=== PATIENT | female | born 1955 | race Caucasian/White ===

== ENCOUNTER 2018-04-11 06:43 | Inpatient (IN) | payer BC ==
[~2018-04-11 06:43] MED LIST: Lactated Ringers 1,000 ML IV SCH; Lidocaine 1%/Sod Bicarbonate in NS 8.4% 1 ML Syringe IDERM PRN; Sodium Chloride 0.9% 10 ML Syringe FLUSH PRN
[2018-04-11] MEDS ORDERED: Cyclobenzaprine 10 MG Tab PO PRN (06:45)
[2018-04-11] MEDS ORDERED: Sennosides 8.6 MG Tab PO PRN (06:46)
[2018-04-11] MEDS ORDERED: Bisacodyl 5 MG Tab PO PRN (06:46)
[2018-04-11] MEDS ORDERED: Morphine 2 MG/ML Syringe IVPUSH PRN (06:46)
[2018-04-11] MEDS ORDERED: Magnesium Hydroxide 400 MG/5 ML Susp 30 ML Cup PO PRN (06:46)
[2018-04-11] MEDS ORDERED: Naloxone 0.4 MG/ML SDV IVPUSH PRN (06:46)
[2018-04-11] MEDS ORDERED: ceFAZolin 1 GM Vial ONE ×2 (06:55→07:09)
[2018-04-11] MEDS ORDERED: Ketorolac 30 MG/ML SDV ONE ×2 (06:55→08:16)
[2018-04-11] MEDS ORDERED: Propofol 200 MG/20 ML SDV ONE ×2 (06:55→09:03)
[2018-04-11] MEDS ORDERED: fentaNYL 100 MCG/2 ML SDV ONE (06:56)
[2018-04-11] MEDS ORDERED: Midazolam 1 MG/ML 2 ML SDV ONE ×2 (06:56→07:53)
[2018-04-11] MEDS ORDERED: oxyCODONE ER 10 MG TAB.ER PO SCH (07:00)
[2018-04-11] MEDS ORDERED: Acetaminophen 325 MG Tab PO SCH (07:00)
[2018-04-11] MEDS ORDERED: ceFAZolin 2 GM in Premix Bag 1 BAG IV SCH (07:00)
[2018-04-11] MEDS ORDERED: Vancomycin 1 GM SDV ONE (07:09)
[2018-04-11] MEDS ORDERED: Iodine/Sodium Iodide 2% Tincture 30 ML Bottle ONE (07:09)
[2018-04-11] MEDS ORDERED: Bupivacaine 0.25% 30 ML SDV ONE ×2 (07:10→07:15)
[2018-04-11] MEDS ORDERED: Triamcinolone Acetonide 40 MG/ML 1 ML MDV ONE ×3 (07:15→10:24)
--- NOTE | 2018-04-11 07:34 | PCM.PREANE ---
Preanesthetic Assessment - Anesthesia/Transfusion/Family Hx Anesthesia History: Prior Anesthesia Without Reaction Family History of Anesthesia Reaction: No Transfusion History: No Prior Transfusion(s) - Review of Systems General: Other (increased lipids) Pulmonary: Other (CXR negative) Cardiovascular: Other (EKG-SR, 2-3 plus pitting edema in ankles and feet. pt states this happens when cortisone shots wear off) Gastrointestinal: No Symptoms Other: Reports: Depression, Anxiety - Physical Assessment NPO Status Date: 04/10/18 NPO Status Time: 22:00 Pulse: 71 O2 Sat by Pulse Oximetry: 97 Respiratory Rate: 16 Blood Pressure: 142/57 Height: 1.73 m Weight: 94 kg ASA Class: 2 Mental Status: Alert & Oriented x3 Airway Class: Mallampati = 2 Dentition: Reports: Normal Dentition Thyro-Mental Finger Breadths: 3 Mouth Opening Finger Breadths: 3 ROM/Head Extension: Full Lungs: Clear to Auscultation, Normal Respiratory Effort Cardiovascular: Regular Rate, Regular Rhythm - Lab Values: Laboratory Last Values MRSA (PCR) Negative 03/30/18 15:03 - Allergies Allergies/Adverse Reactions: Allergies Allergy/AdvReac Type Severity Reaction Status Date / Time adhesive Allergy Blisters Verified 04/08/18 14:09 latex Allergy Blisters Verified 04/08/18 14:09 Sulfa (Sulfonamide Allergy Rash Verified 04/08/18 14:09 Antibiotics) - Blood Blood Available: No Product(s) Available: None - Anesthesia Plan Pre-Op Medication Ordered: None - Acknowledgements Anesthesia Type Planned: Spinal Pt an Appropriate Candidate for the Planned Anesthesia: Yes Alternatives and Risks of Anesthesia Discussed w Pt/Guardian: Yes Pt/Guardian Understands and Agrees with Anesthesia Plan: Yes PreAnesthesia Questionnaire HEENT History: Reports: Allergic Rhinitis, Impaired Vision Cardiovascular History: Reports: High Cholesterol, Hypertension Respiratory History: Reports: None Gastrointestinal History: Reports: None Genitourinary History: Reports: Urinary Incontinence, Other (See Below) Other Genitourinary History: rectocele, incontinence SERVICES ADVISOR History: Reports: , Other (See Below) Other OB/BYN History: bladder lift Musculoskeletal History: Reports: None Neurological History: Reports: None Psychiatric History: Reports: Anxiety, Depression, Other (See Below) Other Psychiatric History: insomnia Endocrine/Metabolic History: Reports: None Hematologic History: Reports: Other (See Below) Other Hematologic History: leukocytosis Immunologic History: Reports: None Oncologic (Cancer) History: Reports: None Dermatologic History: Reports: None - Past Surgical History Head Surgeries/Procedures: Reports: None HEENT Surgical History: Reports: None Cardiovascular Surgical History: Reports: None Respiratory Surgical History: Reports: None GI Surgical History: Reports: Colonoscopy Female Surgical History: Reports: Hysterectomy Male Surgical History: Reports: None Endocrine Surgical History: Reports: None Neurological Surgical History: Reports: None Musculoskeletal Surgical History: Reports: None Oncologic Surgical History: Reports: None Dermatological Surgical History: Reports: None - SUBSTANCE USE Smoking Status *Q: Never Smoker Second Hand Smoke Exposure: No Recreational Drug Use History: No - HOME MEDS Home Medications: Home Meds Cholecalciferol (Vitamin D3) [Vitamin D3] 1,000 unit PO DAILY 04/08/18 [History] Fluticasone Propionate [Flonase] 1 spray NASBOTH DAILY PRN 04/08/18 [History] Montelukast [Singulair] 10 mg PO DAILY 04/08/18 [History] Multivitamin [Daily Jonathan] 1 tab PO DAILY 04/08/18 [History] Venlafaxine HCl [Venlafaxine ER] 37.5 mg PO DAILY 04/08/18 [History] Venlafaxine HCl [Venlafaxine ER] 75 mg PO DAILY 04/08/18 [History] Zolpidem Tartrate 10 mg PO BEDTIME PRN 04/08/18 [History] - CURRENT (IN HOUSE) MEDS Current Meds: Current Medications Acetaminophen (Tylenol) 975 mg PO ONETIME ART Aspirin (Ecotrin) 325 mg PO BID ART Bisacodyl (Dulcolax) 5 mg PO DAILY PRN PRN Reason: Constipation Cyclobenzaprine HCl (Flexeril) 10 mg PO TID PRN PRN Reason: Spasms Docusate Sodium (Colace) 100 mg PO BID ART Famotidine (Pepcid) 20 mg PO Q12H [facility] Lactated Ringer's (Ringers, Lactated) 1,000 mls @ 125 mls/hr IV ASDIRECTED ART Cefazolin Sodium/Dextrose 2 gm (/ Premix) 50 mls @ 100 mls/hr IV Q8H ART Stop: 04/11/18 23:29 Ketorolac Tromethamine (Toradol) 15 mg IVPUSH Q6H PRN PRN Reason: Pain Lidocaine/Sodium Bicarbonate (Buffered Lidocaine 1% In Ns 8.4%) 0.25 ml IDERM ONETIME PRN PRN Reason: Prior to IV Start Magnesium Hydroxide (Milk Of Magnesia) 30 ml PO BID PRN PRN Reason: Constipation Morphine Sulfate (Morphine) 2 mg IVPUSH Q2H PRN PRN Reason: Breakthrough Pain Naloxone HCl (Narcan) 0.1 mg IVPUSH Q5M PRN PRN Reason: Oversedation Oxycodone HCl (Oxycontin) 10 mg PO ONETIME ART Oxycodone/Acetaminophen (Percocet 325-5 Mg) 1 - 2 tab PO Q4H PRN PRN Reason: Pain Pregabalin (Lyrica) 50 mg PO ONETIME ONE Stop: 04/11/18 09:01 Senna (Senna) 8.6 mg PO BID PRN PRN Reason: Constipation Sodium Chloride (Saline Flush) 10 ml FLUSH ASDIRECTED PRN PRN Reason: Keep Vein Open Discontinued Medications Bupivacaine HCl (Marcaine 0.25%) Confirm Administered Dose 30 ml .ROUTE .STK- MED ONE Stop: 04/11/18 07:11 Bupivacaine HCl (Marcaine 0.25%) Confirm Administered Dose 30 ml .ROUTE .STK- MED ONE Stop: 04/11/18 07:16 Cefazolin Sodium (Ancef) Confirm Administered Dose 2 gm .ROUTE .STK-MED ONE Stop: 04/11/18 06:56 Cefazolin Sodium (Ancef) Confirm Administered Dose 2 gm .ROUTE .STK-MED ONE Stop: 04/11/18 07:10 Morphine Sulfate 8 mg/Epinephrine HCl 0.3 mg/Cefuroxime Sodium 750 mg/Ketorolac Tromethamine 30 mg/Sodium Chloride 27.9 ml 0 mg .XX ONETIME ONE Stop: 04/11/18 06:46 Fentanyl (Sublimaze) Confirm Administered Dose 100 mcg .ROUTE .STK-MED ONE Stop: 04/11/18 06:57 Iodine (Iodine 2% Mild Tincture) Confirm Administered Dose 30 ml .ROUTE .STK- MED ONE Stop: 04/11/18 07:10 Ketorolac Tromethamine (Toradol) Confirm Administered Dose 30 mg .ROUTE .STK- MED ONE Stop: 04/11/18 06:56 Midazolam HCl (Versed 1 Mg/Ml) Confirm Administered Dose 2 mg .ROUTE .STK-MED ONE Stop: 04/11/18 06:57 Propofol (Diprivan 20 Ml) Confirm Administered Dose 600 mg .ROUTE .STK-MED ONE Stop: 04/11/18 06:56 Tranexamic Acid (Cyklokapron) Confirm Administered Dose 1,000 mg .ROUTE .STK- MED ONE Stop: 04/11/18 07:10 Triamcinolone Acetonide (Kenalog-40) Confirm Administered Dose 40 mg .ROUTE .STK -MED ONE Stop: 04/11/18 07:16 Vancomycin HCl (Vancomycin) Confirm Administered Dose 1 gm .ROUTE .STK-MED ONE Stop: 04/11/18 07:10
[2018-04-11] MEDS ORDERED: Ropivacaine 0.5% 5 MG/ML 30 ML SDV ONE (07:40)
[2018-04-11] MEDS ORDERED: EPINEPHrine 1 MG/ML SDV ONE (07:40)
[2018-04-11] MEDS ORDERED: Pregabalin 25 MG Cap PO ONE (08:00)
[2018-04-11] MEDS ORDERED: Bupivacaine 0.75% 30 ML SDV ONE (08:16)
[2018-04-11] MEDS ORDERED: Phenylephrine/Normal Saline 100 MCG/ML 10 ML Syringe ONE ×2 (08:16→08:58)
[2018-04-11] MEDS ORDERED: Lactated Ringers 1,000 ML ONE ×2 (08:59→09:39)
[2018-04-11] MEDS: Morphine 8 MG, EPINEPHrine 0.3 MG, Cefuroxime 750 MG, Ketorolac 30 MG, Sodium Chloride ... ONE ×10 (09:13→20:42)
--- NOTE | 2018-04-11 09:56 | PCM.POSTAN ---
POST ANESTHESIA ASSESSMENT - MENTAL STATUS Mental Status: Alert, Oriented - VITAL SIGNS Pulse Rate: 70 SaO2: 96 Resp Rate: 16 Blood Pressure: 112/54 Temperature: 36.6 C - RESPIRATORY Respiratory Status: Respiratory Rate WNL, Airway Patent, O2 Saturation Stable, Supplemental Oxygen - CARDIOVASCULAR CV Status: Pulse Rate WNL, Blood Pressure Stable - GASTROINTESTINAL GI Status: No Symptoms - PAIN Pain Score: 0 - POST OP HYDRATION Hydration Status: Adequate & Stable
[2018-04-11] MEDS ORDERED: fentaNYL 100 MCG/2 ML SDV IVPUSH PRN (09:57)
--- NOTE | 2018-04-11 10:09 | PCM.SN ---
- Free Text/Narrative Note: Left selective femoral nerve block at the adductor canal for post-procedure pain control Time Out: 954 Start: 1003 End: 1000 Chart reviewed. Consent signed. Questions answered. Appropriate monitors applied. Time out performed. 2mg of versed and 100mcg of fentanyl given for sedation. Left mid-shaft femur evaluated with ultrasound. Scanning medially femur, I was able to identify the femoral artery in the adductor canal. The saphenous nerve was lateral to the artery. The skin was prepped lateral to the ultrasound probe with chlorahexadine. Skin localized with 3mL of 1% lidocaine. The 21ga 4 insulated block needle was inserted under direct ultrasound guidance into the adductor canal. 25mL of 0.5% ropivacaine with 1:200,000 epinephrine was injected cirmcumferentially about the nerve with intermittent negative aspiration every 5mL. Patient tolerated the procedure well. See pictures on progress note and vital signs on nurses notes. Block completed postoperatively. Miguel Angel Cantu, FAMILY SERVICE COUNSELOR
--- NOTE | 2018-04-11 11:26 | CR ---
Left knee: AP and lateral views of the left knee were obtained. Comparison: No previous left knee exam. Knee prosthesis is seen. Components are aligned. Underlying bony structures are intact. Soft tissue air is noted from the surgical procedure. Impression: 1. Satisfactory postop radiographic appearance of recently placed left knee prosthesis. Diagnostic code #2
--- NOTE | 2018-04-11 12:04 | PCM.OPNOTE ---
- General Post-Op/Procedure Note Date of Surgery/Procedure: 04/11/18 Operative Procedure(s): bilateral knee osteoarthrosis Pre Op Diagnosis: left total knee arthroplasty with right knee corticosteroid injection Post-Op Diagnosis: Same Anesthesia Technique: Local, MAC, Spinal Primary Surgeon: Robin Lai Anesthesia Provider: Madeleine Baldwin Patent Law Specialist: Saundra Dougherty Patent Law Specialist: Maura Beck EBL in mLs: 200 Complications: None Condition: Good Free Text/Narrative:: Intake & Output 04/10/18 04/11/18 04/11/18 22:59 06:59 14:59 Intake Total 600 Output Total 150 Balance 450 size 4/ 29x9
--- NOTE | 2018-04-11 12:37 | OR ---
DATE OF OPERATION: 04/11/2018 SURGEON: Robin Lai MD OPERATION PERFORMED: Left total knee arthroplasty with right knee corticosteroid injection. PREOPERATIVE DIAGNOSIS: Bilateral knee osteoarthrosis. POSTOPERATIVE DIAGNOSIS: Bilateral knee osteoarthrosis. ANESTHESIA: Local MAC with spinal. ANESTHESIA PROVIDER: Madeleine Baldwin. ASSISTANTS: 1. Saundra Dougherty PA-C. 2. Maura Beck LPN. ESTIMATED BLOOD LOSS: 200 mL. COMPLICATIONS: None. CONDITION: Stable. IMPLANTS: 1. [place] size 4 press-fit CR femur. 2. [place] size 4 press-fit [place] tibial baseplate. 3. Theodora size 4 9-mm CS polyethylene insert. 4. [place] size 29 x 9 mm press-fit patella. DESCRIPTION OF PROCEDURE: The patient was identified in the preop holding area. Proper site was marked and identified by the surgeon. The patient was taken back to the operating theater. After adequate anesthesia, the patient's left lower extremity had a nonsterile tourniquet applied and it was then sterilely prepped and draped in the usual sterile fashion. OR timeout was performed. The patient received 2 grams IV Ancef. At this time, left lower extremity was exsanguinated. Tourniquet was insufflated to 300 mmHg. Standard medial parapatellar incision was made. Medial parapatellar arthrotomy was created. Deep fibers of the MCL were raised and anterior fat pad was resected. At this time, attention was turned to the patella. Patella measured a 22 and it was resected to a 13 for a 29 x 9 mm patella. Drill holes were then drilled and found to be in adequate position. The drill was then drilled in the distal femur and the intramedullary distal femoral cutting guide was then placed. 8 mm was resected off the distal femur and was found to be an adequate resection. Sizing guide was placed. It was found to be a [place] size 4 press-fit CR femur that was shown on the implant record at the beginning of this dictation. The drill holes were drilled for the epicondylar axis using [place] line and epicondyles as reference. At this time, the 4-in-1 cutting block was placed. An anterior posterior and anterior and posterior chamfer cuts were then completed. The correct size box cut was then placed and the box cut was completed and found to be an adequate resection. Attention was turned to the tibia. The posterior medial lateral retractors were placed. The extramedullary tibial guide was placed. It was placed in the old footprint of the ACL. It was aligned with the center of the ankle and 0 degrees of slope, 9 mm was then resected off the unaffected lateral side. There was found to be an acceptable reduction. At this time, posterior osteophytes were removed along with medial and lateral meniscus. A trial implant was placed with a correct sized tibia that was mentioned at the beginning of the dictation. A Theodora size 4 9-mm CS polyethylene insert was then placed. The patient's knee was brought through range of motion. The patella was tracking centrally and was stable to varus and valgus stress. Alignment was found to be roughly at 0 degrees. The tibia was stamped and drilled in proper rotation. The universal tibial base plate was press-fit in place. Next, the Theodora size 4 press-fit CR femur press-fit into place and the Theodora size 4 9-mm CS polyethylene insert was placed. The patient's knee was brought into full extension. The patella was then press-fit in place at this time. Tourniquet was deflated. One liter dilute Betadine solution was irrigated through the knee along with 3 L of pulse lavage irrigation with Ancef. Periarticular injection was then completed. The patient's knee was brought through a range of motion. Knee was found to be stable to varus valgus stress, the patella was tracking centrally with full range of motion. At this time, a #2 barbed suture was used for closure of the medial parapatellar arthrotomy. Topical tranexamic acid was placed. 2-0 Vicryl was used subcutaneously, a running 3-0 Monocryl was used subcuticularly. After that procedure, the patient underwent a corticosteroid injection to the right knee. Under sterile technique, 2 mL of 40 mg Kenalog and 4 mL of 0.25% Marcaine were injected to the right knee. The patient tolerated both the procedures well and was sent to the PACU in a stable condition. JAZMYN /[id number] CHEN
[2018-04-11] MEDS: Docusate Sodium 100 MG Cap PO SCH ×2 (13:11→20:43)
[2018-04-11] MEDS: Famotidine 20 MG Tab PO SCH ×2 (13:11→18:02)
[2018-04-11] MEDS: Acetaminophen/oxyCODONE 325-5 MG Tab PO PRN ×2 (13:37→18:01)
[2018-04-11] MEDS: ceFAZolin 2 GM in Premix Bag 1 BAG IV SCH (14:46)
[2018-04-11] MEDS ORDERED: Temazepam 15 MG Cap PO PRN (17:34)
[2018-04-11] MEDS ORDERED: Promethazine 25 MG Tab PO PRN (17:45)
--- NOTE | 2018-04-11 18:25 | PCM.CONS ---
H&P History of Present Illness - General Date of Service: 04/11/18 Admit Problem/Dx: Admission Diagnosis/Problem Admission Diagnosis/Problem Osteoarthritis of knee Source of Information: Patient, Old Records, Provider History Limitations: Reports: No Limitations - History of Present Illness Initial Comments - Free Text/Narative: Evelyn is a 62 yo female patient of Dr. Lai who is post-operative day 0 of L TKA. Hospital medicine was consulted for post-operative medical care. At this time she is stable. Pain is controlled. She denies any chest pain, shortness of breath, palpitations, nausea, or vomiting. She carries a history of: HTN, HLD, depression, urinary incontinence, leukocytosis, insomnia, GERD, OA, constipation , osteopenia. She has never smoked. She is a full code. Her primary care provider is Aminta Varner. Left Knee Pain Score (Numeric/FACES): 0 - Related Data Allergies/Adverse Reactions: Allergies Allergy/AdvReac Type Severity Reaction Status Date / Time adhesive Allergy Blisters Verified 04/11/18 08:08 latex Allergy Blisters Verified 04/11/18 08:08 Sulfa (Sulfonamide Allergy Rash Verified 04/11/18 08:08 Antibiotics) Home Medications: Home Meds Cholecalciferol (Vitamin D3) [Vitamin D3] 5,000 unit PO DAILY 04/08/18 [History] Montelukast [Singulair] 10 mg PO DAILY 04/08/18 [History] Multivitamin [Daily Jonathan] 1 tab PO DAILY 04/08/18 [History] Venlafaxine HCl [Venlafaxine ER] 37.5 mg PO DAILY 04/08/18 [History] Venlafaxine HCl [Venlafaxine ER] 75 mg PO DAILY 04/08/18 [History] Zolpidem Tartrate 10 mg PO BEDTIME PRN 04/08/18 [History] Acetaminophen/oxyCODONE [Percocet 325-5 MG] 1 - 2 tab PO Q6H PRN #60 tablet 09/18 [Rx] Aspirin [Ecotrin] 325 mg PO BID #84 tab.ec 04/11/18 [Rx] Bisacodyl [Dulcolax] 5 mg PO DAILY PRN tablet 04/11/18 [Rx] Docusate Sodium [Colace] 100 mg PO BID cap 04/11/18 [Rx] Famotidine [Pepcid] 20 mg PO Q12H tablet 04/11/18 [Rx] Magnesium Hydroxide [Milk of Magnesia] 30 ml PO BID PRN cup 04/11/18 [Rx] Sennosides [Senna] 8.6 mg PO BID PRN tablet 04/11/18 [Rx] atorvaSTATin [Lipitor] 20 mg PO BEDTIME 04/11/18 [History] Past Medical History HEENT History: Reports: Allergic Rhinitis, Impaired Vision, Other (See Below) Other HEENT History: wears glasses Cardiovascular History: Reports: High Cholesterol, Hypertension Respiratory History: Reports: None Gastrointestinal History: Reports: None Genitourinary History: Reports: Urinary Incontinence, Other (See Below) Other Genitourinary History: rectocele, incontinence 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: , Other (See Below) Other OB/BYN History: bladder lift Musculoskeletal History: Reports: None Neurological History: Reports: None Psychiatric History: Reports: Anxiety, Depression, Other (See Below) Other Psychiatric History: insomnia Endocrine/Metabolic History: Reports: None Hematologic History: Reports: Other (See Below) Other Hematologic History: leukocytosis Immunologic History: Reports: None Oncologic (Cancer) History: Reports: None Dermatologic History: Reports: None - Infectious Disease History Infectious Disease History: Reports: Chicken Pox, Measles - Past Surgical History Head Surgeries/Procedures: Reports: None HEENT Surgical History: Reports: Tonsillectomy Cardiovascular Surgical History: Reports: None Respiratory Surgical History: Reports: None GI Surgical History: Reports: Colonoscopy, EGD Female Surgical History: Reports: Hysterectomy Endocrine Surgical History: Reports: None Neurological Surgical History: Reports: None Musculoskeletal Surgical History: Reports: None, Knee Replacement Other Musculoskeletal Surgeries/Procedures:: knee replacement 04/11/18 cortisol shot injection. states has had cortisol injections in the past. Oncologic Surgical History: Reports: None Dermatological Surgical History: Reports: None Social & Family History - Family History Family Medical History: Noncontributory - Tobacco Use Smoking Status *Q: Never Smoker Second Hand Smoke Exposure: No - Caffeine Use Caffeine Use: Reports: Soda, Tea - Recreational Drug Use Recreational Drug Use: No H&P Review of Systems - Review of Systems: Review Of Systems: See Below General: Reports: No Symptoms. Denies: Fever, Chills HEENT: Reports: No Symptoms Pulmonary: Reports: No Symptoms. Denies: Shortness of Breath, Pleuritic Chest Pain, Cough Cardiovascular: Reports: No Symptoms. Denies: Chest Pain, Dyspnea on Exertion, Orthopnea, Edema Gastrointestinal: Reports: No Symptoms. Denies: Abdominal Pain, Diarrhea, Nausea, Vomiting Genitourinary: Reports: No Symptoms. Denies: Dysuria, Frequency, Burning, Pain , Urgency, Incontinence Musculoskeletal: Reports: No Symptoms. Denies: Leg Pain, Joint Pain Skin: Reports: No Symptoms Psychiatric: Reports: No Symptoms Neurological: Reports: No Symptoms Hematologic/Lymphatic: Reports: No Symptoms Immunologic: Reports: No Symptoms Exam - Exam Exam: See Below - Vital Signs Vital Signs: Last Vital Signs Temp 97.3 F 04/11/18 10:58 Pulse 64 04/11/18 11:02 Resp 17 04/11/18 10:58 BP 115/48 L 04/11/18 11:02 Pulse Ox 98 04/11/18 11:02 Weight: 207 lb 3.752 oz - Exam Quality Assessment: Urinary Catheter, DVT Prophylaxis. No: Supplemental Oxygen General: Alert, Oriented, Cooperative, Mild Distress HEENT: PERRLA, Hearing Intact, Mucosa Moist & Uriah, Nares Patent, Normal Nasal Septum, Posterior Pharynx Clear, Conjunctiva Clear, EOMI, EACs Clear, TMs Clear Neck: Supple, Trachea Midline, 2 Lungs: Clear to Auscultation, Normal Respiratory Effort Cardiovascular: Regular Rate, Regular Rhythm GI/Abdominal Exam: Normal Bowel Sounds, Soft, Non-Tender, No Organomegaly, No Distention, No Abnormal Bruit, No Mass, Pelvis Stable (Female) Exam: Deferred Rectal (Female) Exam: Deferred Back Exam: Normal Inspection, Full Range of Motion, NT Extremities: Normal Inspection, Non-Tender, No Pedal Edema, Normal Capillary Refill, Limited Range of Motion (s/p L TKA) Peripheral Pulses: 2+: Posterior Tibial (L), Posterior Tibial (R), Dorsalis Pedis (L), Dorsalis Pedis (R) Skin: Warm, Dry, Intact, Other (bandage dry and intact, no drainage) Neurological: Cranial Nerves Intact (grossly) Neuro Extensive - Mental Status: Alert, Oriented x3, Normal Mood/Affect, Normal Cognition Psychiatric: Alert, Normal Affect, Normal Mood Consult PN Assessment/Plan POD#: 0 Procedures: Procedures ASSAY OF FREE THYROXINE (10/17/14) ASSAY THYROID STIM HORMONE (10/17/14) COMP SCREEN MAMMOGRAM ADD-ON (11/04/15) COMPLETE CBC W/AUTO DIFF WBC (10/17/14) COMPREHEN METABOLIC PANEL (10/31/14) DXA BONE DENSITY AXIAL (01/16/16) LIPID PANEL (10/17/14) SCR MAMMO BI INCL CAD (03/24/18) (1) Status post total left knee replacement SNOMED Code(s): 9806630063829 Code(s): Z96.652 - PRESENCE OF LEFT ARTIFICIAL KNEE JOINT Priority: High Current Visit: Yes (2) HTN (hypertension) SNOMED Code(s): 09945060 Code(s): I10 - ESSENTIAL (PRIMARY) HYPERTENSION Priority: Medium Current Visit: No Qualifiers: Hypertension type: unspecified Qualified Code(s): I10 - Essential (primary ) hypertension (3) HLD (hyperlipidemia) SNOMED Code(s): 98406585 Code(s): E78.5 - HYPERLIPIDEMIA, UNSPECIFIED Priority: Low Current Visit : No Qualifiers: Hyperlipidemia type: unspecified Qualified Code(s): E78.5 - Hyperlipidemia , unspecified (4) Other specified depressive episodes SNOMED Code(s): 00540898 Code(s): F32.89 - OTHER SPECIFIED DEPRESSIVE EPISODES Priority: Low Current Visit: No (5) Urinary incontinence SNOMED Code(s): 572914849 Code(s): R32 - UNSPECIFIED URINARY INCONTINENCE Priority: Medium Current Visit: Yes Qualifiers: Urinary Incontinence type: unspecified incontinence Qualified Code(s): R32 - Unspecified urinary incontinence (6) Leukocytosis SNOMED Code(s): 866411879, 631793138 Code(s): D72.829 - ELEVATED WHITE BLOOD CELL COUNT, UNSPECIFIED Priority: Medium Current Visit: No Qualifiers: Leukocytosis type: unspecified Qualified Code(s): D72.829 - Elevated white blood cell count, unspecified (7) Insomnia SNOMED Code(s): 998818322 Code(s): G47.00 - INSOMNIA, UNSPECIFIED Priority: Medium Current Visit: Yes Qualifiers: Insomnia type: unspecified Qualified Code(s): G47.00 - Insomnia, unspecified (8) GERD (gastroesophageal reflux disease) SNOMED Code(s): 694929629 Code(s): K21.9 - GASTRO-ESOPHAGEAL REFLUX DISEASE WITHOUT ESOPHAGITIS Priority: Medium Current Visit: Yes Qualifiers: Esophagitis presence: esophagitis presence not specified Qualified Code(s) : K21.9 - Gastro-esophageal reflux disease without esophagitis (9) Osteoarthritis SNOMED Code(s): 143091419 Code(s): M19.90 - UNSPECIFIED OSTEOARTHRITIS, UNSPECIFIED SITE Priority: High Current Visit: Yes Qualifiers: Osteoarthritis location: knee Osteoarthritis type: unspecified Laterality : unspecified laterality Qualified Code(s): M17.10 - Unilateral primary osteoarthritis, unspecified knee (10) Constipation SNOMED Code(s): 02703537 Code(s): K59.00 - CONSTIPATION, UNSPECIFIED Priority: Medium Current Visit: No Qualifiers: Constipation type: unspecified constipation type Qualified Code(s): K59.00 - Constipation, unspecified (11) Osteopenia SNOMED Code(s): 229106932 Code(s): M85.80 - OTH DISRD OF BONE DENSITY AND STRUCTURE, UNSPECIFIED SITE Priority: Medium Current Visit: Yes Qualifiers: Osteopenia location: unspecified Qualified Code(s): M85.80 - Other specified disorders of bone density and structure, unspecified site Problem List Initiated/Reviewed/Updated: Yes My Orders Last 24 Hours: My Active Orders 04/11/18 17:34 Temazepam [Restoril] 15 mg PO BEDTIME PRN 04/11/18 17:45 Promethazine [Phenergan] 6.25 mg PO Q4H PRN Plan: I/P: Acute: S/P left total knee arthroplasty - post-operative day 0 -DVT prophylaxis and pain management per primary care team -PT/OT -IS/RT -Monitor oxygen saturation -Titrate oxygen as needed -Vital signs stable -Monitor labs -Pre-operative Hgb was 12.5 Osteoarthritis of knee -Pain management per primary care team S/P right knee cortisone injection Chronic: HTN HLD Depression Urinary incontinence Leukocytosis Insomnia GERD OA Constipation Osteopenia Plan: CM for discharge planning GI prophylaxis: Pepcid DVT/PE prophylaxis: GISEL alexandre, SCD, ASA Home medications as indicated Other orders as listed above Routine AM labs She is a full code. Her PCP is Aminta Varner. Thank you for allowing us to participate in the care of this patient!!
[2018-04-11] MEDS: Ketorolac 15 MG/ML SDV IVPUSH PRN (20:15)
[2018-04-12] MEDS: ceFAZolin 2 GM in Premix Bag 1 BAG IV SCH ×2 (00:44→06:28)
[2018-04-12] MEDS: Acetaminophen/oxyCODONE 325-5 MG Tab PO PRN ×3 (00:45→11:27)
[2018-04-12] MEDS: Famotidine 20 MG Tab PO SCH (06:28)
[2018-04-12] MEDS: Ketorolac 15 MG/ML SDV IVPUSH PRN (06:28)
--- NOTE | 2018-04-12 07:02 | PCM.CONSN ---
- General Info Date of Service: 04/12/18 Admission Dx/Problem (Free Text): Admission Diagnosis/Problem Admission Diagnosis/Problem Osteoarthritis of knee Subjective Update: In to see Evelyn. She is sitting up in the chair eating. She has no complaints or concerns. No concerns from nursing. Functional Status: Reports: Pain Controlled, Tolerating Diet, Ambulating, Urinating, Incentive Spirometry. Denies: New Symptoms - Review of Systems General: Reports: No Symptoms HEENT: Reports: No Symptoms Pulmonary: Reports: No Symptoms Cardiovascular: Reports: No Symptoms Gastrointestinal: Reports: No Symptoms Genitourinary: Reports: No Symptoms Musculoskeletal: Reports: Joint Pain Skin: Reports: No Symptoms Neurological: Reports: No Symptoms Psychiatric: Reports: No Symptoms - Patient Data Vitals - Most Recent: Last Vital Signs Temp 97.3 F 04/11/18 10:58 Pulse 71 04/11/18 18:05 Resp 17 04/11/18 10:58 BP 127/63 04/11/18 18:04 Pulse Ox 95 04/11/18 18:05 Weight - Most Recent: 207 lb 3.752 oz I&O - Last 24 Hours: Intake & Output 04/11/18 04/12/18 04/12/18 22:59 06:59 14:59 Intake Total 1620 Output Total 1300 Balance 320 Lab Results Last 24 Hours: Laboratory Results - last 24 hr 04/12/18 Range/Units 05:35 WBC 11.74 H (3.98-10.04) K/mm3 RBC 3.42 L (3.98-5.22) M/mm3 Hgb 10.5 L (11.2-15.7) gm/L Hct 32.3 L (34.1-44.9) % MCV 94.4 (79.4-94.8) fl MCH 30.7 (25.6-32.2) pg MCHC 32.5 (32.2-35.5) g/dl RDW Std Deviation 37.6 (36.4-46.3) fL Plt Count 291 (182-369) K/mm3 MPV 11.1 (9.4-12.3) fl Med Orders - Current: Current Medications Acetaminophen (Tylenol) 975 mg PO ONETIME [facility] Last Admin: 04/11/18 07:52 Dose: 975 mg Aspirin (Ecotrin) 325 mg PO BID [facility] Bisacodyl (Dulcolax) 5 mg PO DAILY PRN PRN Reason: Constipation Cyclobenzaprine HCl (Flexeril) 10 mg PO TID PRN PRN Reason: Spasms Last Admin: 04/12/18 00:45 Dose: 10 mg Docusate Sodium (Colace) 100 mg PO BID [facility] Last Admin: 04/11/18 20:43 Dose: Not Given Famotidine (Pepcid) 20 mg PO Q12H [facility] Last Admin: 04/12/18 06:28 Dose: 20 mg Fentanyl (Sublimaze) 50 mcg IVPUSH Q5M PRN PRN Reason: pain Cefazolin Sodium/Dextrose 2 gm (/ Premix) 50 mls @ 100 mls/hr IV Q8H [facility] Stop: 04/12/18 07:29 Last Admin: 04/12/18 06:28 Dose: 100 mls/hr Ketorolac Tromethamine (Toradol) 15 mg IVPUSH Q6H PRN PRN Reason: Pain Last Admin: 04/12/18 06:28 Dose: 15 mg Lidocaine/Sodium Bicarbonate (Buffered Lidocaine 1% In Ns 8.4%) 0.25 ml IDERM ONETIME PRN PRN Reason: Prior to IV Start Magnesium Hydroxide (Milk Of Magnesia) 30 ml PO BID PRN PRN Reason: Constipation Morphine Sulfate (Morphine) 2 mg IVPUSH Q2H PRN PRN Reason: Breakthrough Pain Last Admin: 04/11/18 20:15 Dose: 2 mg Naloxone HCl (Narcan) 0.1 mg IVPUSH Q5M PRN PRN Reason: Oversedation Oxycodone HCl (Oxycontin) 10 mg PO ONETIME [facility] Last Admin: 04/11/18 07:51 Dose: 10 mg Oxycodone/Acetaminophen (Percocet 325-5 Mg) 1 - 2 tab PO Q4H PRN PRN Reason: Pain Last Admin: 04/12/18 06:29 Dose: 2 tab Promethazine HCl (Phenergan) 6.25 mg PO Q4H PRN PRN Reason: Nausea/Vomiting Senna (Senna) 8.6 mg PO BID PRN PRN Reason: Constipation Sodium Chloride (Saline Flush) 10 ml FLUSH ASDIRECTED PRN PRN Reason: Keep Vein Open Temazepam (Restoril) 15 mg PO BEDTIME PRN PRN Reason: Insomnia Discontinued Medications Bupivacaine HCl (Marcaine 0.25%) Confirm Administered Dose 30 ml .ROUTE .STK- MED ONE Stop: 04/11/18 07:11 Last Admin: 04/11/18 09:14 Dose: 30 ml Bupivacaine HCl (Marcaine 0.25%) Confirm Administered Dose 30 ml .ROUTE .STK- MED ONE Stop: 04/11/18 07:16 Last Admin: 04/11/18 09:45 Dose: 4 ml Bupivacaine HCl (Sensorcaine-Mpf 0.75%) Confirm Administered Dose 30 ml .ROUTE .STK-MED ONE Stop: 04/11/18 08:17 Cefazolin Sodium (Ancef) Confirm Administered Dose 2 gm .ROUTE .STK-MED ONE Stop: 04/11/18 06:56 Last Admin: 04/11/18 09:08 Dose: 2 gm Cefazolin Sodium (Ancef) Confirm Administered Dose 2 gm .ROUTE .STK-MED ONE Stop: 04/11/18 07:10 Morphine Sulfate 8 mg/Epinephrine HCl 0.3 mg/Cefuroxime Sodium 750 mg/Ketorolac Tromethamine 30 mg/Sodium Chloride 27.9 ml 0 mg .XX ONETIME ONE Stop: 04/11/18 06:46 Last Admin: 04/11/18 20:42 Dose: Not Given Epinephrine HCl (Adrenalin) Confirm Administered Dose 1 mg .ROUTE .STK-MED ONE Stop: 04/11/18 07:41 Fentanyl (Sublimaze) Confirm Administered Dose 100 mcg .ROUTE .STK-MED ONE Stop: 04/11/18 06:57 Lactated Ringer's (Ringers, Lactated) 1,000 mls @ 125 mls/hr IV ASDIRECTED [facility] Last Admin: 04/11/18 07:35 Dose: 125 mls/hr Cefazolin Sodium/Dextrose 2 gm (/ Premix) 50 mls @ 100 mls/hr IV Q8H [facility] Stop: 04/11/18 23:29 Last Admin: 04/11/18 20:50 Dose: Not Given Lactated Ringer's (Ringers, Lactated) Confirm Administered Dose 1,000 mls @ as directed .ROUTE .STK-MED ONE Stop: 04/11/18 09:00 Lactated Ringer's (Ringers, Lactated) Confirm Administered Dose 1,000 mls @ as directed .ROUTE .STK-MED ONE Stop: 04/11/18 09:40 Iodine (Iodine 2% Mild Tincture) Confirm Administered Dose 30 ml .ROUTE .STK- MED ONE Stop: 04/11/18 07:10 Last Admin: 04/11/18 09:07 Dose: 18 ml Ketorolac Tromethamine (Toradol) Confirm Administered Dose 30 mg .ROUTE .STK- MED ONE Stop: 04/11/18 06:56 Ketorolac Tromethamine (Toradol) Confirm Administered Dose 30 mg .ROUTE .STK- MED ONE Stop: 04/11/18 08:17 Midazolam HCl (Versed 1 Mg/Ml) Confirm Administered Dose 2 mg .ROUTE .STK-MED ONE Stop: 04/11/18 06:57 Midazolam HCl (Versed 1 Mg/Ml) Confirm Administered Dose 2 mg .ROUTE .STK-MED ONE Stop: 04/11/18 07:54 Phenylephrine HCl (Phenylephrine In Ns 100 Mcg/Ml) Confirm Administered Dose 1 mg .ROUTE .STK-MED ONE Stop: 04/11/18 08:17 Phenylephrine HCl (Phenylephrine In Ns 100 Mcg/Ml) Confirm Administered Dose 1 mg .ROUTE .STK-MED ONE Stop: 04/11/18 08:59 Pregabalin (Lyrica) 50 mg PO ONETIME ONE Stop: 04/11/18 08:01 Last Admin: 04/11/18 07:54 Dose: 50 mg Promethazine HCl (Phenergan) 6.25 mg PO Q4H PRN PRN Reason: Nausea/Vomiting Propofol (Diprivan 20 Ml) Confirm Administered Dose 600 mg .ROUTE .STK-MED ONE Stop: 04/11/18 06:56 Propofol (Diprivan 20 Ml) Confirm Administered Dose 200 mg .ROUTE .STK-MED ONE Stop: 04/11/18 09:04 Ropivacaine (Naropin 0.5%) Confirm Administered Dose 30 ml .ROUTE .STK-MED ONE Stop: 04/11/18 07:41 Tranexamic Acid (Cyklokapron) Confirm Administered Dose 1,000 mg .ROUTE .STK- MED ONE Stop: 04/11/18 07:10 Last Admin: 04/11/18 09:21 Dose: 1,000 mg Triamcinolone Acetonide (Kenalog-40) Confirm Administered Dose 40 mg .ROUTE .STK -MED ONE Stop: 04/11/18 07:16 Last Admin: 04/11/18 09:45 Dose: 80 mg Triamcinolone Acetonide (Kenalog-40) Confirm Administered Dose 40 mg .ROUTE .STK -MED ONE Stop: 04/11/18 07:54 Triamcinolone Acetonide (Kenalog-40) Confirm Administered Dose 40 mg .ROUTE .STK -MED ONE Stop: 04/11/18 10:25 Vancomycin HCl (Vancomycin) Confirm Administered Dose 1 gm .ROUTE .STK-MED ONE Stop: 04/11/18 07:10 Last Admin: 04/11/18 09:18 Dose: 1 gm - Exam Quality Assessment: DVT Prophylaxis General: Alert, Oriented, Cooperative, No Acute Distress HEENT: Pupils Equal, Pupils Reactive, EOMI, Mucous Membr. Moist/[place] Neck: Supple, Trachea Midline, No JVD Lungs: Clear to Auscultation, Normal Respiratory Effort Cardiovascular: Regular Rate, Regular Rhythm GI/Abdominal Exam: Normal Bowel Sounds, Soft, Non-Tender, No Distention (Female) Exam: Deferred Back Exam: Normal Inspection, Full Range of Motion Extremities: No Pedal Edema, Normal Capillary Refill, Leg Pain, Limited Range of Motion, Other (Bandage in place on left leg. Cooling pack in place. ) Peripheral Pulses: 2+: Radial (L), Radial (R), Posterior Tibial (L), Posterior Tibial (R), Dorsalis Pedis (L), Dorsalis Pedis (R) Skin: Warm, Dry, Intact Wound/Incisions: Dressing Dry and Intact, No Drainage Neurological: No New Focal Deficit Psy/Mental Status: Alert, Normal Affect, Normal Mood Consult PN Assessment/Plan POD#: 1 Procedures: Procedures ASSAY OF FREE THYROXINE (10/17/14) ASSAY THYROID STIM HORMONE (10/17/14) COMP SCREEN MAMMOGRAM ADD-ON (11/04/15) COMPLETE CBC W/AUTO DIFF WBC (10/17/14) COMPREHEN METABOLIC PANEL (10/31/14) DXA BONE DENSITY AXIAL (01/16/16) LIPID PANEL (10/17/14) SCR MAMMO BI INCL CAD (03/24/18) (1) Status post total left knee replacement SNOMED Code(s): 4530578699850 Code(s): Z96.652 - PRESENCE OF LEFT ARTIFICIAL KNEE JOINT Priority: High Current Visit: Yes (2) Osteoarthritis SNOMED Code(s): 149173639 Code(s): M19.90 - UNSPECIFIED OSTEOARTHRITIS, UNSPECIFIED SITE Priority: High Current Visit: Yes Qualifiers: Osteoarthritis location: knee Osteoarthritis type: unspecified Laterality : unspecified laterality Qualified Code(s): M17.10 - Unilateral primary osteoarthritis, unspecified knee (3) Osteopenia SNOMED Code(s): 235461689 Code(s): M85.80 - OTH DISRD OF BONE DENSITY AND STRUCTURE, UNSPECIFIED SITE Priority: Medium Current Visit: Yes Qualifiers: Osteopenia location: unspecified Qualified Code(s): M85.80 - Other specified disorders of bone density and structure, unspecified site (4) GERD (gastroesophageal reflux disease) SNOMED Code(s): 826684697 Code(s): K21.9 - GASTRO-ESOPHAGEAL REFLUX DISEASE WITHOUT ESOPHAGITIS Priority: Medium Current Visit: Yes Qualifiers: Esophagitis presence: esophagitis presence not specified Qualified Code(s) : K21.9 - Gastro-esophageal reflux disease without esophagitis (5) Insomnia SNOMED Code(s): 497617292 Code(s): G47.00 - INSOMNIA, UNSPECIFIED Priority: Medium Current Visit: Yes Qualifiers: Insomnia type: unspecified Qualified Code(s): G47.00 - Insomnia, unspecified (6) Urinary incontinence SNOMED Code(s): 311826108 Code(s): R32 - UNSPECIFIED URINARY INCONTINENCE Priority: Medium Current Visit: Yes Qualifiers: Urinary Incontinence type: unspecified incontinence Qualified Code(s): R32 - Unspecified urinary incontinence (7) Constipation SNOMED Code(s): 55652104 Code(s): K59.00 - CONSTIPATION, UNSPECIFIED Priority: Medium Current Visit: No Qualifiers: Constipation type: unspecified constipation type Qualified Code(s): K59.00 - Constipation, unspecified (8) HLD (hyperlipidemia) SNOMED Code(s): 38322276 Code(s): E78.5 - HYPERLIPIDEMIA, UNSPECIFIED Priority: Low Current Visit : No Qualifiers: Hyperlipidemia type: unspecified Qualified Code(s): E78.5 - Hyperlipidemia , unspecified (9) HTN (hypertension) SNOMED Code(s): 13915414 Code(s): I10 - ESSENTIAL (PRIMARY) HYPERTENSION Priority: Medium Current Visit: No Qualifiers: Hypertension type: unspecified Qualified Code(s): I10 - Essential (primary ) hypertension (10) Leukocytosis SNOMED Code(s): 946098450, 083223218 Code(s): D72.829 - ELEVATED WHITE BLOOD CELL COUNT, UNSPECIFIED Priority: Medium Current Visit: No Qualifiers: Leukocytosis type: unspecified Qualified Code(s): D72.829 - Elevated white blood cell count, unspecified (11) Other specified depressive episodes SNOMED Code(s): 67535722 Code(s): F32.89 - OTHER SPECIFIED DEPRESSIVE EPISODES Priority: Low Current Visit: No Problem List Initiated/Reviewed/Updated: Yes Plan: I/P: Acute: S/P left total knee arthroplasty - post-operative day 1 -DVT prophylaxis and pain management per primary care team -PT/OT -IS/RT -Monitor oxygen saturation -Titrate oxygen as needed -Vital signs stable -Monitor labs -Pre-operative Hgb was 12.5, now 10.5 -Pre-operative GFR was 50, now >60 Osteoarthritis of knee -Pain management per primary care team S/P right knee cortisone injection Chronic: HTN HLD Depression Urinary incontinence Leukocytosis Insomnia GERD OA Constipation Osteopenia Plan: CM for discharge planning GI prophylaxis: Pepcid DVT/PE prophylaxis: GISEL alexandre, SCD, ASA Home medications as indicated Other orders as listed above Routine AM labs She is a full code. Her PCP is Aminta Varner. Thank you for allowing us to participate in the care of this patient!! From a hospitalist standpoint Evelyn is doing well. She has been working with PT/ OT. Labs and vital signs look good. Pain is "managed." She has urinated. She is cleared for discharge pending primary team approval.
--- NOTE | 2018-04-12 07:58 | PCM.SURGPN ---
- General Info Date of Service: 04/12/18 POD#: 1 Functional Status: Reports: Pain Controlled, Tolerating Diet, Ambulating, Urinating, Incentive Spirometry, Other (The pt states she was able to sleep "some" last night.) - Patient Data Vitals - Most Recent: Last Vital Signs Temp 97.3 F 04/11/18 10:58 Pulse 71 04/11/18 18:05 Resp 17 04/11/18 10:58 BP 127/63 04/11/18 18:04 Pulse Ox 95 04/11/18 18:05 Weight - Most Recent: 207 lb 3.752 oz I&O - Last 24 Hours: Intake & Output 04/11/18 04/12/18 04/12/18 22:59 06:59 14:59 Intake Total 1620 Output Total 1300 Balance 320 Lab Results Last 24 Hrs: Laboratory Results - last 24 hr 04/12/18 04/12/18 Range/Units 05:35 05:35 WBC 11.74 H (3.98-10.04) K/mm3 RBC 3.42 L (3.98-5.22) M/mm3 Hgb 10.5 L (11.2-15.7) gm/L Hct 32.3 L (34.1-44.9) % MCV 94.4 (79.4-94.8) fl MCH 30.7 (25.6-32.2) pg MCHC 32.5 (32.2-35.5) g/dl RDW Std Deviation 37.6 (36.4-46.3) fL Plt Count 291 (182-369) K/mm3 MPV 11.1 (9.4-12.3) fl Sodium 142 (136-145) mEq/L Potassium 4.1 (3.5-5.1) mEq/L Chloride 107 (98-107) mEq/L Carbon Dioxide 27 (21-32) mEq/L Anion Gap 12.1 (5-15) BUN 15 (7-18) mg/dL Creatinine 0.8 (0.55-1.02) mg/dL Est Cr Clr Drug Dosing 71.67 mL/min Estimated GFR (MDRD) > 60 (>60) mL/min BUN/Creatinine Ratio 18.8 H (14-18) Glucose 113 (80-115) mg/dL Calcium 8.7 (8.5-10.1) mg/dL Total Bilirubin 0.6 (0.2-1.0) mg/dL AST 16 (15-37) U/L ALT 14 (14-59) U/L Alkaline Phosphatase 63 (46-116) U/L Total Protein 5.8 L (6.4-8.2) g/dl Albumin 2.7 L (3.4-5.0) g/dl Globulin 3.1 gm/dL Albumin/Globulin Ratio 0.9 L (1-2) Med Orders - Current: Current Medications Acetaminophen (Tylenol) 975 mg PO ONETIME [facility] Last Admin: 04/11/18 07:52 Dose: 975 mg Aspirin (Ecotrin) 325 mg PO BID [facility] Bisacodyl (Dulcolax) 5 mg PO DAILY PRN PRN Reason: Constipation Cyclobenzaprine HCl (Flexeril) 10 mg PO TID PRN PRN Reason: Spasms Last Admin: 04/12/18 00:45 Dose: 10 mg Docusate Sodium (Colace) 100 mg PO BID [facility] Last Admin: 04/11/18 20:43 Dose: Not Given Famotidine (Pepcid) 20 mg PO Q12H [facility] Last Admin: 04/12/18 06:28 Dose: 20 mg Fentanyl (Sublimaze) 50 mcg IVPUSH Q5M PRN PRN Reason: pain Ketorolac Tromethamine (Toradol) 15 mg IVPUSH Q6H PRN PRN Reason: Pain Last Admin: 04/12/18 06:28 Dose: 15 mg Lidocaine/Sodium Bicarbonate (Buffered Lidocaine 1% In Ns 8.4%) 0.25 ml IDERM ONETIME PRN PRN Reason: Prior to IV Start Magnesium Hydroxide (Milk Of Magnesia) 30 ml PO BID PRN PRN Reason: Constipation Morphine Sulfate (Morphine) 2 mg IVPUSH Q2H PRN PRN Reason: Breakthrough Pain Last Admin: 04/11/18 20:15 Dose: 2 mg Naloxone HCl (Narcan) 0.1 mg IVPUSH Q5M PRN PRN Reason: Oversedation Oxycodone HCl (Oxycontin) 10 mg PO ONETIME [facility] Last Admin: 04/11/18 07:51 Dose: 10 mg Oxycodone/Acetaminophen (Percocet 325-5 Mg) 1 - 2 tab PO Q4H PRN PRN Reason: Pain Last Admin: 04/12/18 06:29 Dose: 2 tab Promethazine HCl (Phenergan) 6.25 mg PO Q4H PRN PRN Reason: Nausea/Vomiting Senna (Senna) 8.6 mg PO BID PRN PRN Reason: Constipation Sodium Chloride (Saline Flush) 10 ml FLUSH ASDIRECTED PRN PRN Reason: Keep Vein Open Temazepam (Restoril) 15 mg PO BEDTIME PRN PRN Reason: Insomnia Discontinued Medications Bupivacaine HCl (Marcaine 0.25%) Confirm Administered Dose 30 ml .ROUTE .STK- MED ONE Stop: 04/11/18 07:11 Last Admin: 04/11/18 09:14 Dose: 30 ml Bupivacaine HCl (Marcaine 0.25%) Confirm Administered Dose 30 ml .ROUTE .STK- MED ONE Stop: 04/11/18 07:16 Last Admin: 04/11/18 09:45 Dose: 4 ml Bupivacaine HCl (Sensorcaine-Mpf 0.75%) Confirm Administered Dose 30 ml .ROUTE .STK-MED ONE Stop: 04/11/18 08:17 Cefazolin Sodium (Ancef) Confirm Administered Dose 2 gm .ROUTE .STK-MED ONE Stop: 04/11/18 06:56 Last Admin: 04/11/18 09:08 Dose: 2 gm Cefazolin Sodium (Ancef) Confirm Administered Dose 2 gm .ROUTE .STK-MED ONE Stop: 04/11/18 07:10 Morphine Sulfate 8 mg/Epinephrine HCl 0.3 mg/Cefuroxime Sodium 750 mg/Ketorolac Tromethamine 30 mg/Sodium Chloride 27.9 ml 0 mg .XX ONETIME ONE Stop: 04/11/18 06:46 Last Admin: 04/11/18 20:42 Dose: Not Given Epinephrine HCl (Adrenalin) Confirm Administered Dose 1 mg .ROUTE .STK-MED ONE Stop: 04/11/18 07:41 Fentanyl (Sublimaze) Confirm Administered Dose 100 mcg .ROUTE .STK-MED ONE Stop: 04/11/18 06:57 Lactated Ringer's (Ringers, Lactated) 1,000 mls @ 125 mls/hr IV ASDIRECTED [facility] Last Admin: 04/11/18 07:35 Dose: 125 mls/hr Cefazolin Sodium/Dextrose 2 gm (/ Premix) 50 mls @ 100 mls/hr IV Q8H [facility] Stop: 04/11/18 23:29 Last Admin: 04/11/18 20:50 Dose: Not Given Cefazolin Sodium/Dextrose 2 gm (/ Premix) 50 mls @ 100 mls/hr IV Q8H [facility] Stop: 04/12/18 07:29 Last Admin: 04/12/18 06:28 Dose: 100 mls/hr Lactated Ringer's (Ringers, Lactated) Confirm Administered Dose 1,000 mls @ as directed .ROUTE .STK-MED ONE Stop: 04/11/18 09:00 Lactated Ringer's (Ringers, Lactated) Confirm Administered Dose 1,000 mls @ as directed .ROUTE .STK-MED ONE Stop: 04/11/18 09:40 Iodine (Iodine 2% Mild Tincture) Confirm Administered Dose 30 ml .ROUTE .STK- MED ONE Stop: 04/11/18 07:10 Last Admin: 04/11/18 09:07 Dose: 18 ml Ketorolac Tromethamine (Toradol) Confirm Administered Dose 30 mg .ROUTE .STK- MED ONE Stop: 04/11/18 06:56 Ketorolac Tromethamine (Toradol) Confirm Administered Dose 30 mg .ROUTE .STK- MED ONE Stop: 04/11/18 08:17 Midazolam HCl (Versed 1 Mg/Ml) Confirm Administered Dose 2 mg .ROUTE .STK-MED ONE Stop: 04/11/18 06:57 Midazolam HCl (Versed 1 Mg/Ml) Confirm Administered Dose 2 mg .ROUTE .STK-MED ONE Stop: 04/11/18 07:54 Phenylephrine HCl (Phenylephrine In Ns 100 Mcg/Ml) Confirm Administered Dose 1 mg .ROUTE .STK-MED ONE Stop: 04/11/18 08:17 Phenylephrine HCl (Phenylephrine In Ns 100 Mcg/Ml) Confirm Administered Dose 1 mg .ROUTE .STK-MED ONE Stop: 04/11/18 08:59 Pregabalin (Lyrica) 50 mg PO ONETIME ONE Stop: 04/11/18 08:01 Last Admin: 04/11/18 07:54 Dose: 50 mg Promethazine HCl (Phenergan) 6.25 mg PO Q4H PRN PRN Reason: Nausea/Vomiting Propofol (Diprivan 20 Ml) Confirm Administered Dose 600 mg .ROUTE .STK-MED ONE Stop: 04/11/18 06:56 Propofol (Diprivan 20 Ml) Confirm Administered Dose 200 mg .ROUTE .STK-MED ONE Stop: 04/11/18 09:04 Ropivacaine (Naropin 0.5%) Confirm Administered Dose 30 ml .ROUTE .STK-MED ONE Stop: 04/11/18 07:41 Tranexamic Acid (Cyklokapron) Confirm Administered Dose 1,000 mg .ROUTE .STK- MED ONE Stop: 04/11/18 07:10 Last Admin: 04/11/18 09:21 Dose: 1,000 mg Triamcinolone Acetonide (Kenalog-40) Confirm Administered Dose 40 mg .ROUTE .STK -MED ONE Stop: 04/11/18 07:16 Last Admin: 04/11/18 09:45 Dose: 80 mg Triamcinolone Acetonide (Kenalog-40) Confirm Administered Dose 40 mg .ROUTE .STK -MED ONE Stop: 04/11/18 07:54 Triamcinolone Acetonide (Kenalog-40) Confirm Administered Dose 40 mg .ROUTE .STK -MED ONE Stop: 04/11/18 10:25 Vancomycin HCl (Vancomycin) Confirm Administered Dose 1 gm .ROUTE .STK-MED ONE Stop: 04/11/18 07:10 Last Admin: 04/11/18 09:18 Dose: 1 gm - Exam Wound/Incisions: Dressing Dry and Intact General: Alert, Cooperative, No Acute Distress Lungs: Normal Respiratory Effort Extremities: Other (NVS intact. Zach's negative for LLE.) - Problem List Review Problem List Initiated/Reviewed/Updated: Yes - My Orders Last 24 Hours: Active Orders 24 hr Category Date Time Status Communication Order [RC] ROUTINE Care 04/11/18 09:57 Inactive Cooling Warming Measures [RC] ASDIRECTED Care 04/11/18 09:57 Active Notify Provider [RC] ASDIRECTED Care 04/11/18 09:57 Active Pulse Oximetry [RC] ASDIRECTED Care 04/11/18 09:57 Active Regular Diet [DIET] Diet 04/11/18 Lunch Active Acetaminophen [Tylenol] Med 04/11/18 07:00 Active 975 mg PO ONETIME Aspirin [Ecotrin] Med 04/12/18 09:00 Active 325 mg PO BID Docusate Sodium [Colace] Med 04/11/18 09:00 Active 100 mg PO BID Famotidine [Pepcid] Med 04/11/18 07:00 Active 20 mg PO Q12H Promethazine [Phenergan] Med 04/11/18 17:45 Active 6.25 mg PO Q4H PRN Temazepam [Restoril] Med 04/11/18 17:34 Active 15 mg PO BEDTIME PRN fentaNYL [Sublimaze] Med 04/11/18 09:57 Active 50 mcg IVPUSH Q5M PRN oxyCODONE ER [OxyCONTIN] Med 04/11/18 07:00 Active 10 mg PO ONETIME Medication Orders Acetaminophen (Tylenol) 975 mg PO ONETIME [facility] Last Admin: 04/11/18 07:52 Dose: 975 mg Aspirin (Ecotrin) 325 mg PO BID [facility] Bisacodyl (Dulcolax) 5 mg PO DAILY PRN PRN Reason: Constipation Cyclobenzaprine HCl (Flexeril) 10 mg PO TID PRN PRN Reason: Spasms Last Admin: 04/12/18 00:45 Dose: 10 mg Docusate Sodium (Colace) 100 mg PO BID [facility] Last Admin: 04/11/18 20:43 Dose: Not Given Admin: 04/11/18 13:11 Dose: Not Given Famotidine (Pepcid) 20 mg PO Q12H [facility] Last Admin: 04/12/18 06:28 Dose: 20 mg Admin: 04/11/18 18:02 Dose: 20 mg Admin: 04/11/18 13:11 Dose: Not Given Fentanyl (Sublimaze) 50 mcg IVPUSH Q5M PRN PRN Reason: pain Ketorolac Tromethamine (Toradol) 15 mg IVPUSH Q6H PRN PRN Reason: Pain Last Admin: 04/12/18 06:28 Dose: 15 mg Admin: 04/11/18 20:15 Dose: 15 mg Lidocaine/Sodium Bicarbonate (Buffered Lidocaine 1% In Ns 8.4%) 0.25 ml IDERM ONETIME PRN PRN Reason: Prior to IV Start Magnesium Hydroxide (Milk Of Magnesia) 30 ml PO BID PRN PRN Reason: Constipation Morphine Sulfate (Morphine) 2 mg IVPUSH Q2H PRN PRN Reason: Breakthrough Pain Last Admin: 04/11/18 20:15 Dose: 2 mg Naloxone HCl (Narcan) 0.1 mg IVPUSH Q5M PRN PRN Reason: Oversedation Oxycodone HCl (Oxycontin) 10 mg PO ONETIME [facility] Last Admin: 04/11/18 07:51 Dose: 10 mg Oxycodone/Acetaminophen (Percocet 325-5 Mg) 1 - 2 tab PO Q4H PRN PRN Reason: Pain Last Admin: 04/12/18 06:29 Dose: 2 tab Admin: 04/12/18 00:45 Dose: 2 tab Admin: 04/11/18 18:01 Dose: 2 tab Admin: 04/11/18 13:37 Dose: 2 tab Promethazine HCl (Phenergan) 6.25 mg PO Q4H PRN PRN Reason: Nausea/Vomiting Senna (Senna) 8.6 mg PO BID PRN PRN Reason: Constipation Sodium Chloride (Saline Flush) 10 ml FLUSH ASDIRECTED PRN PRN Reason: Keep Vein Open Temazepam (Restoril) 15 mg PO BEDTIME PRN PRN Reason: Insomnia - Assessment Assessment (Free Text/Narrative):: POD#1 - left TKA with right knee cortisone injection - Plan Plan (Free Text/Narrative):: 1. Hgb 10.5. 2. Frequent mobility, TEDs, 325mg ASA BID for VTE prophylaxis. 3. Discharge to home today if cleared by Hospitalist service and meets inpt goals. The pt's case was discussed with Dr. Lai.
[2018-04-12] MEDS ORDERED: Montelukast 10 MG Tab PO SCH (09:00)
[2018-04-12] MEDS ORDERED: Venlafaxine 75 MG Cap.ER PO SCH (09:00)
[2018-04-12] MEDS ORDERED: Multivitamins,Therapeutic Tab PO SCH (09:00)
[2018-04-12] MEDS ORDERED: Aspirin 325 MG Tab.EC PO SCH (09:00)
[2018-04-12] MEDS ORDERED: Venlafaxine 37.5 MG Cap.ER PO SCH (09:00)
[2018-04-12] MEDS ORDERED: Cholecalciferol (Vitamin D3) 1,000 Unit Tab PO SCH (09:00)
[2018-04-12] MEDS: Docusate Sodium 100 MG Cap PO SCH (09:21)
--- NOTE | 2018-04-12 10:26 | PCM48HPAN ---
Post Anesthesia Note - EVALUATION WITHIN 48HRS OF ANESTHETIC Vital Signs in Normal Range: Yes Patient Participated in Evaluation: Yes Respiratory Function Stable: Yes Airway Patent: Yes Cardiovascular Function Stable: Yes Hydration Status Stable: Yes Pain Control Satisfactory: Yes Nausea and Vomiting Control Satisfactory: Yes Mental Status Recovered: Yes - COMMENTS/OBSERVATIONS Free Text/Narrative:: Patient denies any anesthetic complications
[2018-04-12] MEDS ORDERED: Simvastatin 20 MG Tab PO SCH (21:00)
--- NOTE | 2018-04-13 09:33 | PCM.DCSUM1 ---
Discharge Summary - Hospital Course Brief History: Evelyn is a 62 yo female who underwent left TKA with right knee cortisone injection with Dr. Lai on 04-11-2018. The procedure was completed under spinal anesthesia with MAC. The pt tolerated the procedure well and was admitted to the Medical-Surgical Unit. The pt received Ancef ayaz-operatively. She participated in P.T. and O.T. and progressed well. She was allowed to WBAT and used a FWW for mobility. The pt's surgical wound was dressed with a Mepilex dressing and remained clean and dry. On POD#1, the pt was started on 325mg ASA BID for VTE prophylaxis. The pt used TEDs and SCDs also. On POD#1, the pt's hemoglobin was 10.5. Medical management was provided by the Hospitalist service and the pt's hospital course was uneventful. On POD#2, the pt was deemed appropriate for discharge to home. - Discharge Data Discharge Date: 04/12/18 Discharge Disposition: Home, Self-Care 01 Condition: Good - Patient Summary/Data Operative Procedure(s) Performed: bilateral knee osteoarthrosis Consults: Consultations 04/11/18 06:45 OT Evaluation and Treatment [CONS] Routine PT Evaluation and Treatment [CONS] Routine 04/11/18 06:46 Consult to Physician [CONS] Routine - Patient Instructions Diet: Usual Diet as Tolerated Activity: Apply Ice, As Tolerated, Elevate Extremity, Full Weight Bearing Driving: Do Not Drive Showering/Bathing: May Shower Wound/Incision Care: Keep Operative Site/Wound Site Clean and Dry, Do NOT Change Dressing Notify Provider of: Fever, Increased Pain, Swelling and Redness, Drainage, Nausea and/or Vomiting Other/Special Instructions: Please get up and moving around every hour while awake. This helps to prevent blood clots. Please use your walker and have help with mobility as needed. Please take 325mg Aspirin TWICE daily. The aspirin is being used for blood clot prevention and not for pain management so please do not miss a dose of the medication. At home, please complete the exercises that you learned during the Hospital stay. Schedule for physical therapy. Use the pain medication as needed. The medication may cause drowsiness and constipation. Contact your primary care provider for instructions if you are constipated. You may use a stool softener like docusate sodium or Colace 100mg twice daily and/or a laxative like Miralax daily for constipation. Increase your water and fiber intake while you are using the pain medication. Please try to wean from use of the pain medication as soon as able. Wear the GISEL hose during the day and you may remove these at night. Elevate the limb to decrease swelling. Place ice to the area often. Place a towel between your skin and the blue pad. Use the incentive spirometer often. Take deep breaths throughout the day. Increase your protein intake while you are healing. If you have diabetes, please closely monitor your blood sugars and notify your primary care provider with abnormal values. Call the Clinic with questions or concerns - [phone]. - Discharge Plan Prescriptions/Med Rec: Acetaminophen/oxyCODONE [Percocet 325-5 MG] 1 - 2 tab PO Q6H PRN #60 tablet PRN Reason: Pain Aspirin [Ecotrin] 325 mg PO BID #84 tab.ec Home Medications: Home Meds Cholecalciferol (Vitamin D3) [Vitamin D3] 5,000 unit PO DAILY 04/08/18 [History] Montelukast [Singulair] 10 mg PO DAILY 04/08/18 [History] Multivitamin [Daily Jonathan] 1 tab PO DAILY 04/08/18 [History] Venlafaxine HCl [Venlafaxine ER] 37.5 mg PO DAILY 04/08/18 [History] Venlafaxine HCl [Venlafaxine ER] 75 mg PO DAILY 04/08/18 [History] Zolpidem Tartrate 10 mg PO BEDTIME PRN 04/08/18 [History] Acetaminophen/oxyCODONE [Percocet 325-5 MG] 1 - 2 tab PO Q6H PRN #60 tablet 09/18 [Rx] Aspirin [Ecotrin] 325 mg PO BID #84 tab.ec 04/11/18 [Rx] Bisacodyl [Dulcolax] 5 mg PO DAILY PRN tablet 04/11/18 [Rx] Docusate Sodium [Colace] 100 mg PO BID cap 04/11/18 [Rx] Famotidine [Pepcid] 20 mg PO Q12H tablet 04/11/18 [Rx] Magnesium Hydroxide [Milk of Magnesia] 30 ml PO BID PRN cup 04/11/18 [Rx] Sennosides [Senna] 8.6 mg PO BID PRN tablet 04/11/18 [Rx] atorvaSTATin [Lipitor] 20 mg PO BEDTIME 04/11/18 [History] Patient Handouts: Total Knee Replacement, Care After, [id number] Referrals: Saundra Dougherty PA-C [Physician Pile Header] - - Patient Data Vitals - Most Recent: Last Vital Signs Temp 98.2 F 04/12/18 11:18 Pulse 65 04/12/18 11:18 Resp 16 04/12/18 11:18 BP 118/58 L 04/12/18 11:18 Pulse Ox 98 04/12/18 11:18 Weight - Most Recent: 207 lb 3.752 oz I&O - Last 24 hours: Intake & Output 04/12/18 04/13/18 04/13/18 22:59 06:59 14:59 Intake Total 480 Balance 480 Med Orders - Current: Current Medications Discontinued Medications Acetaminophen (Tylenol) 975 mg PO ONETIME [facility] Last Admin: 04/11/18 07:52 Dose: 975 mg Aspirin (Ecotrin) 325 mg PO BID [facility] Last Admin: 04/12/18 09:21 Dose: 325 mg Bisacodyl (Dulcolax) 5 mg PO DAILY PRN PRN Reason: Constipation Bupivacaine HCl (Marcaine 0.25%) Confirm Administered Dose 30 ml .ROUTE .STK- MED ONE Stop: 04/11/18 07:11 Last Admin: 04/11/18 09:14 Dose: 30 ml Bupivacaine HCl (Marcaine 0.25%) Confirm Administered Dose 30 ml .ROUTE .STK- MED ONE Stop: 04/11/18 07:16 Last Admin: 04/11/18 09:45 Dose: 4 ml Bupivacaine HCl (Sensorcaine-Mpf 0.75%) Confirm Administered Dose 30 ml .ROUTE .STK-MED ONE Stop: 04/11/18 08:17 Cefazolin Sodium (Ancef) Confirm Administered Dose 2 gm .ROUTE .STK-MED ONE Stop: 04/11/18 06:56 Last Admin: 04/11/18 09:08 Dose: 2 gm Cefazolin Sodium (Ancef) Confirm Administered Dose 2 gm .ROUTE .STK-MED ONE Stop: 04/11/18 07:10 Cholecalciferol (Vitamin D3) 5,000 units PO DAILY [facility] Last Admin: 04/12/18 09:21 Dose: 5,000 units Morphine Sulfate 8 mg/Epinephrine HCl 0.3 mg/Cefuroxime Sodium 750 mg/Ketorolac Tromethamine 30 mg/Sodium Chloride 27.9 ml 0 mg .XX ONETIME ONE Stop: 04/11/18 06:46 Last Admin: 04/11/18 20:42 Dose: Not Given Cyclobenzaprine HCl (Flexeril) 10 mg PO TID PRN PRN Reason: Spasms Last Admin: 04/12/18 00:45 Dose: 10 mg Docusate Sodium (Colace) 100 mg PO BID [facility] Last Admin: 04/12/18 09:21 Dose: 100 mg Epinephrine HCl (Adrenalin) Confirm Administered Dose 1 mg .ROUTE .STK-MED ONE Stop: 04/11/18 07:41 Famotidine (Pepcid) 20 mg PO Q12H [facility] Last Admin: 04/12/18 06:28 Dose: 20 mg Fentanyl (Sublimaze) Confirm Administered Dose 100 mcg .ROUTE .STK-MED ONE Stop: 04/11/18 06:57 Fentanyl (Sublimaze) 50 mcg IVPUSH Q5M PRN PRN Reason: pain Lactated Ringer's (Ringers, Lactated) 1,000 mls @ 125 mls/hr IV ASDIRECTED [facility] Last Admin: 04/11/18 07:35 Dose: 125 mls/hr Cefazolin Sodium/Dextrose 2 gm (/ Premix) 50 mls @ 100 mls/hr IV Q8H [facility] Stop: 04/11/18 23:29 Last Admin: 04/11/18 20:50 Dose: Not Given Cefazolin Sodium/Dextrose 2 gm (/ Premix) 50 mls @ 100 mls/hr IV Q8H [facility] Stop: 04/12/18 07:29 Last Admin: 04/12/18 06:28 Dose: 100 mls/hr Lactated Ringer's (Ringers, Lactated) Confirm Administered Dose 1,000 mls @ as directed .ROUTE .STK-MED ONE Stop: 04/11/18 09:00 Lactated Ringer's (Ringers, Lactated) Confirm Administered Dose 1,000 mls @ as directed .ROUTE .STK-MED ONE Stop: 04/11/18 09:40 Iodine (Iodine 2% Mild Tincture) Confirm Administered Dose 30 ml .ROUTE .STK- MED ONE Stop: 04/11/18 07:10 Last Admin: 04/11/18 09:07 Dose: 18 ml Ketorolac Tromethamine (Toradol) 15 mg IVPUSH Q6H PRN PRN Reason: Pain Last Admin: 04/12/18 06:28 Dose: 15 mg Ketorolac Tromethamine (Toradol) Confirm Administered Dose 30 mg .ROUTE .STK- MED ONE Stop: 04/11/18 06:56 Ketorolac Tromethamine (Toradol) Confirm Administered Dose 30 mg .ROUTE .STK- MED ONE Stop: 04/11/18 08:17 Lidocaine/Sodium Bicarbonate (Buffered Lidocaine 1% In Ns 8.4%) 0.25 ml IDERM ONETIME PRN PRN Reason: Prior to IV Start Magnesium Hydroxide (Milk Of Magnesia) 30 ml PO BID PRN PRN Reason: Constipation Midazolam HCl (Versed 1 Mg/Ml) Confirm Administered Dose 2 mg .ROUTE .STK-MED ONE Stop: 04/11/18 06:57 Midazolam HCl (Versed 1 Mg/Ml) Confirm Administered Dose 2 mg .ROUTE .STK-MED ONE Stop: 04/11/18 07:54 Montelukast Sodium (Singulair) 10 mg PO DAILY [facility] Last Admin: 04/12/18 09:20 Dose: Not Given Morphine Sulfate (Morphine) 2 mg IVPUSH Q2H PRN PRN Reason: Breakthrough Pain Last Admin: 04/11/18 20:15 Dose: 2 mg Multivitamins (Thera) 1 each PO DAILY [facility] Last Admin: 04/12/18 09:21 Dose: 1 each Naloxone HCl (Narcan) 0.1 mg IVPUSH Q5M PRN PRN Reason: Oversedation Oxycodone HCl (Oxycontin) 10 mg PO ONETIME [facility] Last Admin: 04/11/18 07:51 Dose: 10 mg Oxycodone/Acetaminophen (Percocet 325-5 Mg) 1 - 2 tab PO Q4H PRN PRN Reason: Pain Last Admin: 04/12/18 11:27 Dose: 2 tab Phenylephrine HCl (Phenylephrine In Ns 100 Mcg/Ml) Confirm Administered Dose 1 mg .ROUTE .STK-MED ONE Stop: 04/11/18 08:17 Phenylephrine HCl (Phenylephrine In Ns 100 Mcg/Ml) Confirm Administered Dose 1 mg .ROUTE .STK-MED ONE Stop: 04/11/18 08:59 Pregabalin (Lyrica) 50 mg PO ONETIME ONE Stop: 04/11/18 08:01 Last Admin: 04/11/18 07:54 Dose: 50 mg Promethazine HCl (Phenergan) 6.25 mg PO Q4H PRN PRN Reason: Nausea/Vomiting Promethazine HCl (Phenergan) 6.25 mg PO Q4H PRN PRN Reason: Nausea/Vomiting Propofol (Diprivan 20 Ml) Confirm Administered Dose 600 mg .ROUTE .STK-MED ONE Stop: 04/11/18 06:56 Propofol (Diprivan 20 Ml) Confirm Administered Dose 200 mg .ROUTE .STK-MED ONE Stop: 04/11/18 09:04 Ropivacaine (Naropin 0.5%) Confirm Administered Dose 30 ml .ROUTE .STK-MED ONE Stop: 04/11/18 07:41 Senna (Senna) 8.6 mg PO BID PRN PRN Reason: Constipation Simvastatin (Zocor) 20 mg PO BEDTIME [facility] Sodium Chloride (Saline Flush) 10 ml FLUSH ASDIRECTED PRN PRN Reason: Keep Vein Open Temazepam (Restoril) 15 mg PO BEDTIME PRN PRN Reason: Insomnia Tranexamic Acid (Cyklokapron) Confirm Administered Dose 1,000 mg .ROUTE .STK- MED ONE Stop: 04/11/18 07:10 Last Admin: 04/11/18 09:21 Dose: 1,000 mg Triamcinolone Acetonide (Kenalog-40) Confirm Administered Dose 40 mg .ROUTE .STK -MED ONE Stop: 04/11/18 07:16 Last Admin: 04/11/18 09:45 Dose: 80 mg Triamcinolone Acetonide (Kenalog-40) Confirm Administered Dose 40 mg .ROUTE .STK -MED ONE Stop: 04/11/18 07:54 Triamcinolone Acetonide (Kenalog-40) Confirm Administered Dose 40 mg .ROUTE .STK -MED ONE Stop: 04/11/18 10:25 Vancomycin HCl (Vancomycin) Confirm Administered Dose 1 gm .ROUTE .STK-MED ONE Stop: 04/11/18 07:10 Last Admin: 04/11/18 09:18 Dose: 1 gm Venlafaxine HCl (Effexor Xr) 75 mg PO DAILY [facility] Last Admin: 04/12/18 09:21 Dose: 75 mg Venlafaxine HCl (Effexor Xr) 37.5 mg PO DAILY [facility] Last Admin: 04/12/18 09:21 Dose: 37.5 mg
== END 2018-04-12 15:00 | disposition home or self-care (01) | DRG 302 ==
LOC: JD.MS 06:43 → EDSTATUS 11:00
PROVIDERS: ADMIT Orthopaedic Surgery; ATTEND Orthopaedic Surgery
PROC: 0SRD0JA Replacement of Left Knee Joint with Synthetic Substitute, Uncemented, Open Approach (ICD-10-PCS; principal; 2018-04-11)
PROC: 3E0T3BZ Introduction of Anesthetic Agent into Peripheral Nerves and Plexi, Percutaneous Approach (ICD-10-PCS; 2018-04-11)
PROC: 3E0U33Z Introduction of Anti-inflammatory into Joints, Percutaneous Approach (ICD-10-PCS; 2018-04-11)
DX: M17.0 Bilateral primary osteoarthritis of knee (principal); I10 Essential (primary) hypertension; E78.5 Hyperlipidemia, unspecified; F32.9 Major depressive disorder, single episode, unspecified; R32 Unspecified urinary incontinence; K21.9 Gastro-esophageal reflux disease without esophagitis; E78.00 Pure hypercholesterolemia, unspecified; K59.00 Constipation, unspecified; M85.80 Other specified disorders of bone density and structure, unspecified site; G47.00 Insomnia, unspecified; D72.829 Elevated white blood cell count, unspecified; F41.9 Anxiety disorder, unspecified; Z88.2 Allergy status to sulfonamides; Z91.040 Latex allergy status; Z79.899 Other long term (current) drug therapy; Z79.82 Long term (current) use of aspirin
CPT/HCPCS: 36415; 73560-26-LT; 73560-LT; 80053; 85027; 87641; 97110-GP; 97116-GP; 97162-GP; 97165-GO; 97535-GO; A9270-GY; C1776; J0171; J0690; J0697; J1885; J2250; J2270; J2704; J2795; J3010; J3301; J3370; J3490; J7120

== ENCOUNTER 2020-06-18 09:09 | Day surgery (SDC) | payer MEDICARE, OTHER ==
[~2020-06-18 09:09] MED LIST changes: +Cefuroxime 10 MG/ML SYRINGE EYELF SCH; -Lactated Ringers 1,000 ML IV SCH; +Lidocaine 1% PF 2 ML SDV INJECT SCH; -Lidocaine 1%/Sod Bicarbonate in NS 8.4% 1 ML Syringe IDERM PRN; +Pilocarpine 4% Ophth Soln 15 ML Bot EYELF SCH; +Polymyxin B/Trimethoprim 10 ML Bottle EYELF SCH; -Sodium Chloride 0.9% 10 ML Syringe FLUSH PRN
[2020-06-18] MEDS: Ofloxacin 0.3% Ophth Soln 5 ML Bottle EYELF SCH ×3 (09:13→11:01)
[2020-06-18] MEDS: Brimonidine 0.2% Ophth Soln 5 ML Bottle EYELF SCH ×3 (09:18→11:01)
[2020-06-18] MEDS: Phenylephrine 2.5% Ophth Soln 2 ML Bot EYELF SCH ×5 (09:23→10:41)
[2020-06-18] MEDS: Tropicamide 1% Ophth Soln 15 ML Bottle EYELF SCH ×4 (09:28→10:12)
--- NOTE | 2020-06-18 09:44 | PCM.PREANE ---
Preanesthetic Assessment - Procedure Proposed Procedure: Left Eye Cataract - Anesthesia/Transfusion/Family Hx Anesthesia History: Prior Anesthesia Without Reaction Family History of Anesthesia Reaction: No Transfusion History: No Prior Transfusion(s) - Review of Systems General: No Symptoms Pulmonary: No Symptoms Cardiovascular: No Symptoms Gastrointestinal: No Symptoms Neurological: No Symptoms Other: Reports: None (Insomnia), Anxiety (Feeling comfortable today. ) - Physical Assessment Vital Signs: Last Vital Signs Temp 36.8 C 06/18/20 09:10 Pulse 74 06/18/20 09:10 Resp 16 06/18/20 09:10 BP 156/81 H 06/18/20 09:10 Pulse Ox 95 06/18/20 09:10 Height: 1.73 m Weight: 95.708 kg ASA Class: 2 Mental Status: Alert & Oriented x3 Airway Class: Mallampati = 1 Dentition: Reports: Normal Dentition Thyro-Mental Finger Breadths: 3 Mouth Opening Finger Breadths: 3 ROM/Head Extension: Full Lungs: Clear to Auscultation, Normal Respiratory Effort Cardiovascular: Regular Rate, Regular Rhythm - Allergies Allergies/Adverse Reactions: Allergies Allergy/AdvReac Type Severity Reaction Status Date / Time adhesive Allergy Blisters Verified 08/19/18 13:35 latex Allergy Blisters Verified 08/19/18 13:35 Sulfa (Sulfonamide Allergy Rash Verified 08/19/18 13:35 Antibiotics) - Acknowledgements Anesthesia Type Planned: MAC Pt an Appropriate Candidate for the Planned Anesthesia: Yes Alternatives and Risks of Anesthesia Discussed w Pt/Guardian: Yes Pt/Guardian Understands and Agrees with Anesthesia Plan: Yes PreAnesthesia Questionnaire HEENT History: Reports: Allergic Rhinitis, Impaired Vision, Other (See Below) Other HEENT History: wears glasses Cardiovascular History: Reports: High Cholesterol Respiratory History: Reports: None Gastrointestinal History: Reports: None Genitourinary History: Reports: Urinary Incontinence, Other (See Below) Other Genitourinary History: rectocele 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 Other OB/BYN History: bladder lift Musculoskeletal History: Reports: Osteoarthritis Neurological History: Reports: None Psychiatric History: Reports: Anxiety, Depression, Other (See Below) Other Psychiatric History: insomnia Endocrine/Metabolic History: Reports: None Hematologic History: Reports: Other (See Below) Other Hematologic History: leukocytosis Immunologic History: Reports: None Oncologic (Cancer) History: Reports: None Dermatologic History: Reports: None - Infectious Disease History Infectious Disease History: Reports: Chicken Pox, Measles - Past Surgical History Cardiovascular Surgical History: Reports: None Respiratory Surgical History: Reports: None GI Surgical History: Reports: Colonoscopy, EGD Other GI Surgeries/Procedures: both surgeries in 2012. PT C/O increased constipation since LTKA 04/2018. Female Surgical History: Reports: Hysterectomy, Other (See Below) Endocrine Surgical History: Reports: None Neurological Surgical History: Reports: None Musculoskeletal Surgical History: Reports: Knee Replacement Other Musculoskeletal Surgeries/Procedures:: Left Knee Oncologic Surgical History: Reports: None Dermatological Surgical History: Reports: None - HOME MEDS Home Medications: Home Meds Cholecalciferol (Vitamin D3) [Vitamin D3] 5,000 unit PO DAILY 04/08/18 [History] Montelukast [Singulair] 10 mg PO DAILY 04/08/18 [History] Venlafaxine HCl [Venlafaxine ER] 37.5 mg PO DAILY 04/08/18 [History] Venlafaxine HCl [Venlafaxine ER] 75 mg PO DAILY 04/08/18 [History] Zolpidem Tartrate 10 mg PO BEDTIME PRN 04/08/18 [History] atorvaSTATin [Lipitor] 20 mg PO BEDTIME 04/11/18 [History] Cyanocobalamin (Vitamin B-12) [Vitamin B-12] 500 mcg PO DAILY 08/19/18 [History] Fluticasone Propionate [Flonase] 1 spray NASBOTH DAILY PRN 08/19/18 [History] Docusate Sodium [Colace] 100 mg PO BID cap 08/22/18 [Rx] Sennosides [Senna] 8.6 mg PO BID PRN tablet 08/22/18 [Rx] bisacodyL [Dulcolax] 5 mg PO DAILY PRN tablet 08/22/18 [Rx] - CURRENT (IN HOUSE) MEDS Current Meds: Current Medications Brimonidine Tartrate (Alphagan 0.2% Ophth Soln) 0 ml EYELF ASDIRECTED ART Stop: 06/18/20 18:00 Last Admin: 06/18/20 09:18 Dose: 1 drop Documented by: Cefuroxime Sodium (Zinacef) 0 mg EYELF ASDIRECTED ART Stop: 06/18/20 18:00 Lidocaine HCl (Xylocaine-Mpf 1%) 0 ml INJECT ASDIRECTED ART Stop: 06/18/20 18:00 Ofloxacin (Ocuflox 0.3% Ophth Soln) 0 ml EYELF ASDIRECTED ART Stop: 06/18/20 18:00 Last Admin: 06/18/20 09:13 Dose: 1 drop Documented by: Phenylephrine HCl (Mario Alberto-Synephrine 2.5% Ophth Soln) 0 ml EYELF ASDIRECTED ART Stop: 06/18/20 18:00 Last Admin: 06/18/20 09:34 Dose: 1 drop Documented by: Pilocarpine HCl (Pilocar 4% Ophth Soln) 0 ml EYELF ASDIRECTED ART Stop: 06/18/20 18:00 Tetracaine HCl (Tetracaine 0.5% Steri-Unit Opal) 0 ml EYEBOTH ASDIRECTED ART Stop: 06/18/20 18:00 Tropicamide (Mydriacyl 1% Ophth Soln) 0 ml EYELF ASDIRECTED ART Stop: 06/18/20 18:00 Last Admin: 06/18/20 09:28 Dose: 1 drop Documented by:
[2020-06-18] MEDS: Tetracaine HCl/PF 0.5% 4 ML Bottle EYEBOTH SCH ×5 (10:18→10:51)
--- NOTE | 2020-06-18 11:03 | PCM48HPAN ---
Post Anesthesia Note - EVALUATION WITHIN 48HRS OF ANESTHETIC Vital Signs in Normal Range: Yes Patient Participated in Evaluation: Yes Respiratory Function Stable: Yes Airway Patent: Yes Cardiovascular Function Stable: Yes Hydration Status Stable: Yes Pain Control Satisfactory: Yes Nausea and Vomiting Control Satisfactory: Yes Mental Status Recovered: Yes Vital Signs: Last Vital Signs Temp 36.8 C 06/18/20 09:10 Pulse 74 06/18/20 09:10 Resp 16 06/18/20 09:10 BP 156/81 H 06/18/20 09:10 Pulse Ox 95 06/18/20 09:10
== END 2020-06-18 11:11 | disposition home or self-care (01) ==
LOC: JD.SDS 09:09
PROVIDERS: ATTEND Ophthalmology
DX: H25.813 Combined forms of age-related cataract, bilateral (principal); H35.3131 Nonexudative age-related macular degeneration, bilateral, early dry stage; H35.373 Puckering of macula, bilateral; H16.103 Unspecified superficial keratitis, bilateral; H16.223 Keratoconjunctivitis sicca, not specified as Sjogren's, bilateral; H02.834 Dermatochalasis of left upper eyelid; H02.831 Dermatochalasis of right upper eyelid; E78.00 Pure hypercholesterolemia, unspecified; F41.9 Anxiety disorder, unspecified; F32.9 Major depressive disorder, single episode, unspecified; G47.00 Insomnia, unspecified; Z88.2 Allergy status to sulfonamides; Z91.040 Latex allergy status; Z79.899 Other long term (current) drug therapy
CPT/HCPCS: 66984; J0697; J2001; A9270-GY; C1780

== ENCOUNTER 2020-07-23 11:27 | Day surgery (SDC) | payer MEDICARE, OTHER ==
[~2020-07-23 11:27] MED LIST changes: -Cefuroxime 10 MG/ML SYRINGE EYELF SCH; +Cefuroxime 10 MG/ML SYRINGE EYERT SCH; -Pilocarpine 4% Ophth Soln 15 ML Bot EYELF SCH; +Pilocarpine 4% Ophth Soln 15 ML Bot EYERT SCH; -Polymyxin B/Trimethoprim 10 ML Bottle EYELF SCH; +Polymyxin B/Trimethoprim 10 ML Bottle EYERT SCH
[2020-07-23] MEDS: Ofloxacin 0.3% Ophth Soln 5 ML Bottle EYERT SCH ×3 (11:35→13:15)
[2020-07-23] MEDS: Brimonidine 0.2% Ophth Soln 5 ML Bottle EYERT SCH ×3 (11:41→13:15)
--- NOTE | 2020-07-23 11:45 | PCM.PREANE ---
Preanesthetic Assessment - Procedure Proposed Procedure: cataract right - Anesthesia/Transfusion/Family Hx Anesthesia History: Prior Anesthesia Without Reaction Family History of Anesthesia Reaction: No Transfusion History: No Prior Transfusion(s) - Review of Systems General: No Symptoms Pulmonary: No Symptoms Cardiovascular: No Symptoms Gastrointestinal: No Symptoms Neurological: No Symptoms Other: Reports: None - Physical Assessment NPO Status Date: 07/22/20 NPO Status Time: 18:30 Vital Signs: Last Vital Signs Temp 98.6 F 07/23/20 11:25 Pulse 68 07/23/20 11:25 Resp 16 07/23/20 11:25 BP 152/71 H 07/23/20 11:25 Pulse Ox 95 07/23/20 11:25 Height: 5 ft 8 in Weight: 49.895 kg ASA Class: 2 Mental Status: Alert & Oriented x3 Airway Class: Mallampati = 1 Dentition: Reports: Normal Dentition Thyro-Mental Finger Breadths: 3 Mouth Opening Finger Breadths: 3 ROM/Head Extension: Full Lungs: Clear to Auscultation, Normal Respiratory Effort Cardiovascular: Regular Rate, Regular Rhythm - Allergies Allergies/Adverse Reactions: Allergies Allergy/AdvReac Type Severity Reaction Status Date / Time adhesive Allergy Blisters Verified 08/19/18 13:35 latex Allergy Blisters Verified 08/19/18 13:35 Sulfa (Sulfonamide Allergy Rash Verified 08/19/18 13:35 Antibiotics) - Blood Blood Available: No - Acknowledgements Anesthesia Type Planned: MAC Pt an Appropriate Candidate for the Planned Anesthesia: Yes Alternatives and Risks of Anesthesia Discussed w Pt/Guardian: Yes Pt/Guardian Understands and Agrees with Anesthesia Plan: Yes PreAnesthesia Questionnaire HEENT History: Reports: Allergic Rhinitis, Impaired Vision, Other (See Below) Other HEENT History: wears glasses Cardiovascular History: Reports: High Cholesterol Respiratory History: Reports: None Gastrointestinal History: Reports: None Genitourinary History: Reports: Urinary Incontinence, Other (See Below) Other Genitourinary History: rectocele 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 Other OB/BYN History: bladder lift Musculoskeletal History: Reports: Osteoarthritis Neurological History: Reports: None Psychiatric History: Reports: Anxiety, Depression, Other (See Below) Other Psychiatric History: insomnia Endocrine/Metabolic History: Reports: None Hematologic History: Reports: Other (See Below) Other Hematologic History: leukocytosis Immunologic History: Reports: None Oncologic (Cancer) History: Reports: None Dermatologic History: Reports: None - Infectious Disease History Infectious Disease History: Reports: Chicken Pox, Measles - Past Surgical History Cardiovascular Surgical History: Reports: None Respiratory Surgical History: Reports: None GI Surgical History: Reports: Colonoscopy, EGD Other GI Surgeries/Procedures: both surgeries in 2012. PT C/O increased constipation since LTKA 04/2018. Female Surgical History: Reports: Hysterectomy, Other (See Below) Endocrine Surgical History: Reports: None Neurological Surgical History: Reports: None Musculoskeletal Surgical History: Reports: Knee Replacement Other Musculoskeletal Surgeries/Procedures:: Left Knee Oncologic Surgical History: Reports: None Dermatological Surgical History: Reports: None - SUBSTANCE USE Smoking Status *Q: Never Smoker Tobacco Use Within Last Twelve Months: No Second Hand Smoke Exposure: No Days Per Week of Alcohol Use: 0 Recreational Drug Use History: No - HOME MEDS Home Medications: Home Meds Cholecalciferol (Vitamin D3) [Vitamin D3] 5,000 unit PO DAILY 04/08/18 [History] Montelukast [Singulair] 10 mg PO DAILY 04/08/18 [History] Venlafaxine HCl [Venlafaxine ER] 37.5 mg PO DAILY 04/08/18 [History] Venlafaxine HCl [Venlafaxine ER] 75 mg PO DAILY 04/08/18 [History] Zolpidem Tartrate 10 mg PO BEDTIME PRN 04/08/18 [History] atorvaSTATin [Lipitor] 20 mg PO BEDTIME 04/11/18 [History] Cyanocobalamin (Vitamin B-12) [Vitamin B-12] 500 mcg PO DAILY 08/19/18 [History] Fluticasone Propionate [Flonase] 1 spray NASBOTH DAILY PRN 08/19/18 [History] Docusate Sodium [Colace] 100 mg PO BID cap 08/22/18 [Rx] Sennosides [Senna] 8.6 mg PO BID PRN tablet 08/22/18 [Rx] bisacodyL [Dulcolax] 5 mg PO DAILY PRN tablet 08/22/18 [Rx] - CURRENT (IN HOUSE) MEDS Current Meds: Current Medications Brimonidine Tartrate (Alphagan 0.2% Ophth Soln) 0 ml EYERT ASDIRECTED ART Stop: 07/23/20 20:00 Cefuroxime Sodium (Zinacef) 0 mg EYERT ASDIRECTED ART Stop: 07/23/20 20:00 Lidocaine HCl (Xylocaine-Mpf 1%) 0 ml INJECT ASDIRECTED ART Stop: 07/23/20 20:00 Ofloxacin (Ocuflox 0.3% Ophth Soln) 0 ml EYERT ASDIRECTED ART Stop: 07/23/20 20:00 Last Admin: 07/23/20 11:35 Dose: 1 drop Documented by: Phenylephrine HCl (Mario Alberto-Synephrine 2.5% Ophth Soln) 0 ml EYERT ASDIRECTED ART Stop: 07/23/20 20:00 Pilocarpine HCl (Pilocar 4% Ophth Soln) 0 ml EYERT ASDIRECTED ART Stop: 07/23/20 20:00 Tetracaine HCl (Tetracaine 0.5% Steri-Unit Opal) 0 ml EYEBOTH ASDIRECTED ATR Stop: 07/23/20 20:00 Tropicamide (Mydriacyl 1% Oph Soln) 0 ml EYERT ASDIRECTED ART Stop: 07/23/20 20:00 Discontinued Medications Polymyxin/Trimethoprim Sulfate (Polytrim Ophth Soln) 0 ml EYERT ASDIRECTED ART
[2020-07-23] MEDS: Phenylephrine 2.5% Ophth Soln 2 ML Bot EYERT SCH ×5 (11:46→12:51)
[2020-07-23] MEDS: Tropicamide 1% Ophth Soln 15 ML Bottle EYERT SCH ×4 (11:53→12:26)
[2020-07-23] MEDS: Tetracaine HCl/PF 0.5% 4 ML Bottle EYEBOTH SCH ×5 (12:29→13:14)
--- NOTE | 2020-07-23 13:53 | PCM48HPAN ---
Post Anesthesia Note - EVALUATION WITHIN 48HRS OF ANESTHETIC Vital Signs in Normal Range: Yes Patient Participated in Evaluation: Yes Respiratory Function Stable: Yes Airway Patent: Yes Cardiovascular Function Stable: Yes Hydration Status Stable: Yes Pain Control Satisfactory: Yes Nausea and Vomiting Control Satisfactory: Yes Mental Status Recovered: Yes Vital Signs: Last Vital Signs Temp 36.2 C 07/23/20 13:20 Pulse 78 07/23/20 13:20 Resp 16 07/23/20 13:20 BP 135/67 07/23/20 13:20 Pulse Ox 95 07/23/20 13:20
== END 2020-07-23 13:27 | disposition home or self-care (01) ==
LOC: JD.SDS 11:27
PROVIDERS: ATTEND Ophthalmology
DX: H25.811 Combined forms of age-related cataract, right eye (principal); F41.9 Anxiety disorder, unspecified; E78.00 Pure hypercholesterolemia, unspecified; F32.9 Major depressive disorder, single episode, unspecified; Z98.42 Cataract extraction status, left eye; Z88.2 Allergy status to sulfonamides; Z91.040 Latex allergy status; Z79.899 Other long term (current) drug therapy
CPT/HCPCS: 66984; C1780; J0697; J2001; A9270-GY

== ENCOUNTER 2020-10-03 08:26 | Day surgery (SDC) | payer MEDICARE, OTHER ==
[~2020-10-03 08:26] MED LIST changes: +Acetaminophen 325 MG Tab PO SCH; -Cefuroxime 10 MG/ML SYRINGE EYERT SCH; +Lactated Ringers 1,000 ML IV SCH; -Lidocaine 1% PF 2 ML SDV INJECT SCH; +Lidocaine 1%/Sod Bicarbonate in NS 8.4% 1 ML Syringe IDERM PRN; -Pilocarpine 4% Ophth Soln 15 ML Bot EYERT SCH; -Polymyxin B/Trimethoprim 10 ML Bottle EYERT SCH; +Pregabalin 25 MG Cap PO SCH; +Sodium Chloride 0.9% 10 ML Syringe FLUSH PRN; +oxyCODONE ER 10 MG TAB.ER PO SCH
[2020-10-03] MEDS ORDERED: Ondansetron 4 MG/2 ML SDV ONE ×2 (08:45→10:01)
[2020-10-03] MEDS ORDERED: Lactated Ringers 1,000 ML ONE (08:45)
[2020-10-03] MEDS ORDERED: Lidocaine 1% 4 ML ONE ×2 (08:45)
[2020-10-03] MEDS ORDERED: Propofol 200 MG/20 ML SDV ONE ×3 (08:45→11:12)
[2020-10-03] MEDS ORDERED: fentaNYL 250 MCG/5 ML SDV ONE (08:45)
[2020-10-03] MEDS ORDERED: Midazolam 1 MG/ML 2 ML SDV ONE ×2 (08:45→10:53)
[2020-10-03] MEDS ORDERED: ceFAZolin 1 GM Vial ONE ×2 (08:45→09:25)
[2020-10-03] MEDS ORDERED: Ketorolac 15 MG/ML SDV ONE (08:46)
[2020-10-03] MEDS ORDERED: Dexamethasone 4 MG/ML 5 ML MDV ONE (08:46)
--- NOTE | 2020-10-03 09:13 | PCM.PREANE ---
Preanesthetic Assessment - Procedure Proposed Procedure: Right reverse total shoulder arthroplasty - Anesthesia/Transfusion/Family Hx Anesthesia History: Prior Anesthesia Without Reaction Family History of Anesthesia Reaction: No Transfusion History: No Prior Transfusion(s) - Review of Systems General: No Symptoms Pulmonary: No Symptoms Cardiovascular: No Symptoms Gastrointestinal: No Symptoms Neurological: No Symptoms Other: Reports: Easy Bruising - Physical Assessment NPO Status Date: 10/02/20 NPO Status Time: 00:00 Vital Signs: Last Vital Signs Temp 36.4 C 10/03/20 08:25 Pulse 66 10/03/20 08:25 Resp 16 10/03/20 08:25 BP 147/65 H 10/03/20 08:25 Pulse Ox 97 10/03/20 08:25 Height: 1.73 m Weight: 102.512 kg ASA Class: 3 Mental Status: Alert & Oriented x3 Airway Class: Mallampati = 2 Dentition: Reports: [place](s), Bridge (top both sides) Thyro-Mental Finger Breadths: 2 Mouth Opening Finger Breadths: 2 ROM/Head Extension: Full Lungs: Clear to Auscultation, Normal Respiratory Effort Cardiovascular: Regular Rate, Regular Rhythm - Lab Values: Laboratory Last Values MRSA (PCR) Negative 09/18/20 14:57 - Allergies Allergies/Adverse Reactions: Allergies Allergy/AdvReac Type Severity Reaction Status Date / Time adhesive Allergy Blisters Verified 10/02/20 15:35 latex Allergy Blisters Verified 10/02/20 15:35 Sulfa (Sulfonamide Allergy Rash Verified 10/02/20 15:35 Antibiotics) - Blood Blood Available: No Product(s) Available: None - Anesthesia Plan Pre-Op Medication Ordered: None - Acknowledgements Anesthesia Type Planned: General Anesthesia, Regional Block (right interscaline block for post-op pain control) Pt an Appropriate Candidate for the Planned Anesthesia: Yes Alternatives and Risks of Anesthesia Discussed w Pt/Guardian: Yes Pt/Guardian Understands and Agrees with Anesthesia Plan: Yes PreAnesthesia Questionnaire HEENT History: Reports: Allergic Rhinitis, Impaired Vision, Other (See Below) Other HEENT History: wears glasses Cardiovascular History: Reports: High Cholesterol, Hypertension Respiratory History: Reports: None Gastrointestinal History: Reports: None, GERD (in the last month no issues) Genitourinary History: Reports: Urinary Incontinence, Other (See Below) Other Genitourinary History: rectocele [employer] K[employer] 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 History: Reports: None Other OB/BYN History: bladder lift Musculoskeletal History: Reports: Osteoarthritis Neurological History: Reports: None Psychiatric History: Reports: Anxiety, Depression, Other (See Below) Other Psychiatric History: insomnia Endocrine/Metabolic History: Reports: None Hematologic History: Reports: Other (See Below) Other Hematologic History: leukocytosis Immunologic History: Reports: None Oncologic (Cancer) History: Reports: Basal Cell Carcinoma Dermatologic History: Reports: None - Infectious Disease History Infectious Disease History: Reports: None - Past Surgical History Head Surgeries/Procedures: Reports: None HEENT Surgical History: Reports: Cataract Surgery, Tonsillectomy Cardiovascular Surgical History: Reports: None Respiratory Surgical History: Reports: None GI Surgical History: Reports: Colonoscopy, EGD Other GI Surgeries/Procedures: both surgeries in 2012. PT C/O increased constipation since LT04/2018. Female Surgical History: Reports: Hysterectomy, Other (See Below) Male Surgical History: Reports: None Endocrine Surgical History: Reports: None Neurological Surgical History: Reports: None Musculoskeletal Surgical History: Reports: Knee Replacement Other Musculoskeletal Surgeries/Procedures:: Left Knee Oncologic Surgical History: Reports: None Dermatological Surgical History: Reports: None - SUBSTANCE USE Tobacco Use Status *Q: Never Tobacco User Tobacco Use Within Last Twelve Months: No Second Hand Smoke Exposure: No Days Per Week of Alcohol Use: 0 Number of Drinks Per Day: 0 Total Drinks Per Week: 0 Recreational Drug Use History: No - HOME MEDS Home Medications: Home Meds Cholecalciferol (Vitamin D3) [Vitamin D3] 5,000 unit PO DAILY 04/08/18 [History] Montelukast [Singulair] 10 mg PO DAILY 04/08/18 [History] Zolpidem Tartrate 10 mg PO BEDTIME PRN 04/08/18 [History] atorvaSTATin [Lipitor] 20 mg PO BEDTIME 04/11/18 [History] Cyanocobalamin (Vitamin B-12) [Vitamin B-12] 500 mcg PO DAILY 08/19/18 [History] Ibuprofen 400 mg PO Q6H PRN 10/02/20 [History] Magnesium 250 mg PO DAILY 10/02/20 [History] Multivitamin [Multi-Day Vitamins] 1 tab PO DAILY 10/02/20 [History] Venlafaxine [Venlafaxine HCl ER] 150 mg PO DAILY 10/02/20 [History] Aspirin [Aspirin EC] 325 mg PO DAILY #40 tablet. 10/03/20 [Rx] Cyclobenzaprine [Flexeril] 10 mg PO BID PRN #20 tab 10/03/20 [Rx] oxyCODONE 5 - 10 mg PO Q4H PRN #40 tab 10/03/20 [Rx] - CURRENT (IN HOUSE) MEDS Current Meds: Current Medications Acetaminophen (Tylenol) 975 mg PO ONETIME ART Stop: 10/03/20 16:00 Last Admin: 10/03/20 08:47 Dose: 975 mg Documented by: Lactated Ringer's (Ringers, Lactated) 1,000 mls @ 125 mls/hr IV ASDIRECTED ART Stop: 10/03/20 23:00 Last Admin: 10/03/20 08:55 Dose: 125 mls/hr Documented by: Lidocaine/Sodium Bicarbonate (Buffered Lidocaine 1% In Ns 8.4%) 0.25 ml IDERM ONETIME PRN PRN Reason: Prior to IV Start Stop: 10/03/20 18:00 Oxycodone HCl (Oxycontin) 10 mg PO ONETIME ART Stop: 10/03/20 12:00 Pregabalin (Lyrica) 50 mg PO ONETIME ART Stop: 10/03/20 16:00 Last Admin: 10/03/20 08:46 Dose: 50 mg Documented by: Sodium Chloride (Saline Flush) 10 ml FLUSH ASDIRECTED PRN PRN Reason: Keep Vein Open Stop: 10/03/20 18:00 Discontinued Medications Cefazolin Sodium (Ancef) Confirm Administered Dose 2 gm .ROUTE .STK-MED ONE Stop: 10/03/20 08:46 Dexamethasone (Dexamethasone) Confirm Administered Dose 20 mg .ROUTE .STK-MED ONE Stop: 10/03/20 08:47 Fentanyl (Sublimaze) Confirm Administered Dose 250 mcg .ROUTE .STK-MED ONE Stop: 10/03/20 08:46 Lidocaine HCl (Xylocaine-Mpf 1%) Confirm Administered Dose 4 mls @ as directed .ROUTE .STK-MED ONE Stop: 10/03/20 08:46 Lactated Ringer's (Ringers, Lactated) Confirm Administered Dose 1,000 mls @ as directed .ROUTE .STK-MED ONE Stop: 10/03/20 08:46 Lidocaine HCl (Xylocaine-Mpf 1%) Confirm Administered Dose 4 mls @ as directed .ROUTE .STK-MED ONE Stop: 10/03/20 08:46 Ketorolac Tromethamine (Toradol) Confirm Administered Dose 15 mg .ROUTE .STK-MED ONE Stop: 10/03/20 08:47 Midazolam HCl (Versed 1 Mg/Ml) Confirm Administered Dose 2 mg .ROUTE .STK-MED ONE Stop: 10/03/20 08:46 Ondansetron HCl (Zofran) Confirm Administered Dose 4 mg .ROUTE .STK-MED ONE Stop: 10/03/20 08:46 Propofol (Diprivan 20 Ml) Confirm Administered Dose 400 mg .ROUTE .STK-MED ONE Stop: 10/03/20 08:46
[2020-10-03] MEDS ORDERED: EPINEPHrine 1 MG/ML SDV ONE (09:15)
[2020-10-03] MEDS ORDERED: oxyCODONE ER 10 MG TAB.ER PO SCH (09:15)
[2020-10-03] MEDS ORDERED: Ropivacaine 0.5% 5 MG/ML 30 ML SDV ONE (09:16)
[2020-10-03] MEDS ORDERED: Lidocaine 1% 2 ML ONE (09:26)
--- NOTE | 2020-10-03 10:17 | PCM.SN.2 ---
- Free Text/Narrative Note: Date: 10/03/2020 Time Out: 0936 Start: 936 Stop: 948 Surgical Procedure: Right Reverse Total Shoulder Arthroplasty Diagnosis Right Shoulder OA Current Procedure: Right interscalene block under US guidance for postoperative pain control requested by Dr. Lai. Patient chart reviewed, risk/benefits discussed with patient, consent obtained. Patient positioned supine, monitors/alarms on, oxygen placed via nasal cannula at 2 LPM. IV sedation administered: Versed 2mg IV given in preop prior to block placement. Right shoulder prepped with two chloropreps. Sterile drapes placed with aseptic technique noted. Under US guidance, right subclavian artery visualized along with the right brachial plexus. Plexus followed up to C6 cricoid level, and area localized with 1ml�s of 1% lidocaine. 22gauge 2 inch stimiplex needle advanced under US with 0.6mV with stimulation of biceps noted. Good stimulation noted with decreased voltage and absent at 0.2mV�s. 1ml of Normal Saline injected with loss of stimulation noted to confirm needle not placed intraneurally. Incremental dosing of 5mls with negative aspiration noted prior to each injection of 0.5% ropivacaine with 1:200,000 epinephrine. Total volume=30ml�s. Please refer to nurses noted for vital signs. Miguel Angel Cantu [employer] IN[employer]ER SUPERVISOR
[2020-10-03] MEDS ORDERED: Scopolamine 1.5 MG Transdermal Patch TOP ONE (10:30)
[2020-10-03] MEDS ORDERED: Ketamine 500 mg/10 ML MDV ONE (10:39)
[2020-10-03] MEDS: Bupivacaine 0.25% 10 ML SDV ONE ×2 (11:17→11:43)
[2020-10-03] MEDS: Vancomycin 1 GM SDV ONE ×2 (11:18→11:36)
[2020-10-03] MEDS: Triamcinolone Acetonide 40 MG/ML 1 ML SDV ONE ×2 (11:18→11:43)
[2020-10-03] MEDS ORDERED: HYDROmorphone 0.5 MG/0.5 ML Syringe IVPUSH PRN (11:23)
[2020-10-03] MEDS ORDERED: fentaNYL 100 MCG/2 ML SDV IVPUSH PRN (11:23)
[2020-10-03] MEDS ORDERED: Ondansetron 4 MG/2 ML SDV IVPUSH PRN (11:23)
[2020-10-03] MEDS ORDERED: Rocuronium 50 MG/5 ML Vial ONE (11:58)
--- NOTE | 2020-10-03 12:21 | PCM.POSTAN ---
POST ANESTHESIA ASSESSMENT - MENTAL STATUS Mental Status: Other (Drowsy) - VITAL SIGNS Vital Signs: Last Vital Signs Temp 36.4 C 10/03/20 08:25 Pulse 66 10/03/20 08:25 Resp 16 10/03/20 08:25 BP 147/65 H 10/03/20 08:25 Pulse Ox 97 10/03/20 08:25 1214 130/61 66 16 100% 96.8F - RESPIRATORY Respiratory Status: Respiratory Rate WNL, Airway Patent, O2 Saturation Stable, Supplemental Oxygen - CARDIOVASCULAR CV Status: Pulse Rate WNL, Blood Pressure Stable - GASTROINTESTINAL GI Status: No Symptoms - PAIN Pain Score: 0 - POST OP HYDRATION Hydration Status: Adequate & Stable
--- NOTE | 2020-10-03 12:45 | CR ---
Right shoulder: 3 views of the right shoulder were obtained utilizing C-arm device. Comparison: No prior right shoulder study is available. Study shows placement of a reverse right shoulder prosthesis. Components appear aligned. No gross bony abnormality is appreciated. Fluoroscopy time is given as 6.4 seconds. Impression: 1. Procedural study as described above. Diagnostic code #2
--- NOTE | 2020-10-03 13:39 | CR ---
Right shoulder: 2 views of the right shoulder were obtained. Comparison: Prior operative study performed on the same day. Reverse right shoulder prosthesis. Components are aligned. Surrounding bony structures appear to be intact. Impression: 1. Recently placed reverse right shoulder prosthesis. Diagnostic code #2
--- NOTE | 2020-10-04 12:55 | PCM48HPAN ---
Post Anesthesia Note - EVALUATION WITHIN 48HRS OF ANESTHETIC Vital Signs in Normal Range: Yes Patient Participated in Evaluation: Yes Respiratory Function Stable: Yes Airway Patent: Yes Cardiovascular Function Stable: Yes Hydration Status Stable: Yes Pain Control Satisfactory: Yes Nausea and Vomiting Control Satisfactory: Yes Mental Status Recovered: Yes Vital Signs: Last Vital Signs Temp 36.3 C 10/03/20 14:30 Pulse 71 10/03/20 14:30 Resp 17 10/03/20 14:30 BP 130/59 L 10/03/20 14:30 Pulse Ox 96 10/03/20 14:30
--- NOTE | 2020-10-09 14:03 | PCM.OPNOTE ---
- General Post-Op/Procedure Note Date of Surgery/Procedure: 10/03/20 Operative Procedure(s): right reverse total shoulder arthroplasty with left shoulder injection Pre Op Diagnosis: bilateral shoulder glenohumeral arthrosis Post-Op Diagnosis: Same Anesthesia Technique: General ET Tube, Regional Block Primary Surgeon: Robin Lia Anesthesia Provider: Brionna Cantu Top Cleaner: Saundra Dougherty Top Cleaner: Maura Beck EBL in mLs: 120 Complications: None Condition: Good Free Text/Narrative:: 14 stem 32+6 28 baseplate
--- NOTE | 2020-10-16 16:03 | OR ---
DATE OF OPERATION: 10/03/2020 SURGEON: Robin Lai MD OPERATION PERFORMED: Right reverse total shoulder arthroplasty with left shoulder injection. PREOPERATIVE DIAGNOSIS: Bilateral shoulder glenohumeral arthrosis. POSTOPERATIVE DIAGNOSIS: Bilateral shoulder glenohumeral arthrosis. ANESTHESIA: General endotracheal intubation with regional interscalene block. ANESTHESIA PROVIDER: Dr. Magaly Floyd. SUPERVISOR OF RESEARCH: Saundra Dougherty PA-C and Maura Beck LPN. ESTIMATED BLOOD LOSS: 120 mL. COMPLICATIONS: None. CONDITION: Stable. IMPLANT: 1. [place] size 14, 135-degree humeral reverse stem. 2. [place] size 32+ 6 glenosphere. 3. [place] size 28 mm concentric baseplate. 4. Size 4 mm polyethylene. DESCRIPTION OF PROCEDURE: Patient was identified in the preoperative holding area. Proper site was marked and identified by the surgeon. The patient was taken back to the operative theater where after adequate anesthesia, the patient was placed on radiolucent table. She was placed in reverse Trendelenburg position. Right shoulder was then sterilely prepped and draped in the usual sterile fashion. OR time-out was performed. Patient received 2 g of IV Ancef. Standard deltopectoral incision was made. This was taken down to the cephalic vein. The deltoid and cephalic vein were retracted laterally. The pectoralis major as well as conjoined tendon was retracted medially. The clavipectoral fascia was incised. Anterior humeral circumflex vessels were then ligated. The biceps was then identified and #2 FiberWire was then used for tenodesis of the biceps tendon, and then, it was resected proximally to this. Biceps was then resected back into the joint and was resected out. Peel down of the subscapularis tendon was then done and the humeral head was then dislocated. Humeral head cut was then completed and found to be adequate. Attention was turned to the glenoid. Anterior and posterior glenoid retractors were then placed. Circumferential removal of any remaining biceps as well as the labrum was done at this time as well as a partial capsulectomy. Guidepin was placed in a center-center position with roughly 10 to 20 degrees of inferior tilt. The 28 mm concentric reamer was then utilized to a good bony bleeding bed. A tap was used for the central screw hole and then a 28 mm glenoid baseplate with a central compression screw was placed, and it was found to have good compression against the glenoid, and inferior and superior locking screw were then placed in divergent fashion and the 32+ 6 glenosphere was impacted into place. Attention was turned to the humerus. Starting with a 10 awl, I was able to do up to a 14 mm diaphyseal reamer. I then started with a 12 broach, and I was able to broach up to a 14, which was found to be rotationally and vertically stable. A calcar planer was then utilized and a +4 poly trial was then placed. The patient's shoulder was reduced and brought through range of motion. C-arm fluoroscopy was utilized making sure all components were well aligned. The patient had full range of motion with no signs of instability. The trial components were then dislocated. The stem along with +4 mm liner were constructed on the back table and then impacted into the humerus en bloc. The shoulder was then relocated. C-arm fluoroscopy again was utilized making sure there was no fracture and that all components were well aligned. 1 L of Irrisept irrigation was irrigated through the shoulder along with 1 L of pulse lavage irrigation with Ancef. Topical tranexamic acid and vancomycin powder were applied. 2-0 Vicryl was used subcutaneously, Prineo was used for closure of the skin. Patient had a sterile soft dressing applied as well as a pillow sling applied. After this was completed under sterile technique, 2 mL of 40 mg Kenalog and 4 mL of 0.25% Marcaine were injected into left shoulder. The patient tolerated all procedures well, sent to PACU in stable condition. JAZMYN /[id number]
== END 2020-10-03 15:43 | disposition home or self-care (01) ==
LOC: JD.SDS 08:26
PROVIDERS: ATTEND Orthopaedic Surgery
DX: M19.011 Primary osteoarthritis, right shoulder (principal); M19.012 Primary osteoarthritis, left shoulder; M75.101 Unspecified rotator cuff tear or rupture of right shoulder, not specified as traumatic; G47.00 Insomnia, unspecified; R73.01 Impaired fasting glucose; R03.0 Elevated blood-pressure reading, without diagnosis of hypertension; E78.5 Hyperlipidemia, unspecified; E78.00 Pure hypercholesterolemia, unspecified; I10 Essential (primary) hypertension; F41.9 Anxiety disorder, unspecified; F32.9 Major depressive disorder, single episode, unspecified; Z98.890 Other specified postprocedural states; Z88.2 Allergy status to sulfonamides; Z88.8 Allergy status to other drugs, medicaments and biological substances; Z91.048 Other nonmedicinal substance allergy status; Z91.040 Latex allergy status
CPT/HCPCS: 20610; 23474; 73020; 76000; 87641; 97110; 97161; 97165; A9270; C1713; C1769; C1776; J0171; J0690; J1100; J1885; J2001; J2250; J2405; J2704; J2795; J3301; J3370; J3490; J7120; 01638; 64415; J3010

== ENCOUNTER 2023-01-31 16:05 | Emergency (ER) | payer MEDICARE, OTHER ==
[2023-01-31] MEDS ORDERED: HYDROmorphone 1 MG/ML Syringe IM ONE (17:22)
== END 2023-01-31 18:39 | disposition home or self-care (01) ==
LOC: JD.ED 16:05
DX: S42.212A Unspecified displaced fracture of surgical neck of left humerus, initial encounter for closed fracture (principal); E78.00 Pure hypercholesterolemia, unspecified; K21.9 Gastro-esophageal reflux disease without esophagitis; Z79.899 Other long term (current) drug therapy; Z91.048 Other nonmedicinal substance allergy status; Z91.040 Latex allergy status; Z88.2 Allergy status to sulfonamides; Z79.82 Long term (current) use of aspirin; W00.0XXA Fall on same level due to ice and snow, initial encounter
CPT/HCPCS: 73030; 96372; 99283; J1170

== ENCOUNTER 2023-08-26 07:28 | Day surgery (SDC) | payer MEDICARE, OTHER ==
[~2023-08-26 07:28] MED LIST changes: -Acetaminophen 325 MG Tab PO SCH; -Lidocaine 1%/Sod Bicarbonate in NS 8.4% 1 ML Syringe IDERM PRN; -Pregabalin 25 MG Cap PO SCH; +Sodium Chloride 0.9% 10 ML Syringe FLUSH SCH; -oxyCODONE ER 10 MG TAB.ER PO SCH
[2023-08-26] MEDS ORDERED: fentaNYL 100 MCG/2 ML SDV ONE (08:07)
[2023-08-26] MEDS ORDERED: Lidocaine 1% 4 ML ONE (08:07)
[2023-08-26] MEDS ORDERED: Propofol 200 MG/20 ML SDV ONE ×2 (08:07→09:01)
== END 2023-08-26 10:20 | disposition home or self-care (01) ==
LOC: JD.SDS 07:28
PROVIDERS: ATTEND Surgery
DX: K29.50 Unspecified chronic gastritis without bleeding (principal); K63.5 Polyp of colon; K21.00 Gastro-esophageal reflux disease with esophagitis, without bleeding; K57.30 Diverticulosis of large intestine without perforation or abscess without bleeding; G47.00 Insomnia, unspecified; E78.00 Pure hypercholesterolemia, unspecified; F41.9 Anxiety disorder, unspecified; F32.A Depression, unspecified; E66.9 Obesity, unspecified; Z91.040 Latex allergy status; Z88.2 Allergy status to sulfonamides; Z79.899 Other long term (current) drug therapy; Z68.37 Body mass index [BMI] 37.0-37.9, adult
CPT/HCPCS: 43239; 45380; 88305; 88312; 88342; J2704; J3010; J7120; 00813; J3490